=== PATIENT | female | born 1990 | race Caucasian/White ===

== ENCOUNTER 2017-02-14 21:03 | Inpatient (IN) ==
[2017-02-15] MEDS ORDERED: Hydrocortisone Sodium Succ 100 MG/2 ML VIAL IVP ONE (00:25)
[2017-02-15] MEDS ORDERED: Magnesium Sulfate 1 GM in D5% in Water 100 ML IVPB ONE (00:27)
[2017-02-15] MEDS ORDERED: Hydrocortisone Sodium Succ 100 MG/2 ML VIAL ONE (00:49)
[2017-02-15] MEDS: *HR* Enoxaparin 40 MG/0.4 ML SYRINGE SQ SCH ×2 (01:11→06:51)
--- NOTE | 2017-02-15 01:22 | Internal Med History&Physical ---
Date of Encounter: 02/15/17 Time of Encounter: 01:14 Assessment and Plan (1) Respiratory failure Current visit: Yes Status: Acute Respiratory failure in the setting hypoxemia. No radiological evidence of pneumonia, however patient has received a dose of vanco and zosyn, will continue with both. we will also continue with oxygen therapy and nebulizer treatments. Poor prognosis. Patients family still wants us to transfer the patient back to [place] for further care. Palliative care consult placed. Qualifiers: Chronicity: acute Respiratory failure complication: hypoxia Qualified Code(s): J96.01 - Acute respiratory failure with hypoxia (2) Cerebral palsy Current visit: Yes Status: Acute Qualifiers: Cerebral palsy type: unspecified type Qualified Code(s): G80.9 - Cerebral palsy, unspecified Internal Medicine - H&P: HPI Chief complaint: SOB Admitted From: Hospital to Hospital Transfer ([place]) Plans for Post Hospital Care: Transfer Other History of present illness: Ms. Hutchison is a 27 year old female with PMH of cerebral palsy. bedbounded, has a peg tube. Patient presented to [facility] from [facility] Her mother states that patient has been feeling short f breath since the last 4 days which is getting worse, she has been febrile and with wheezing. Patient mother called patients pcp and patient was seen on saturday and prescribed azythromycin. Patient did get any better and was taken to [place] ED. At [place] she had workup done and was found tachycardic and hypotensive, she was given Zosyn and vancomycin, along with solumedrol and nebulizer therapy. She was transferred to [place] Upon arrival to the hospital i had a conversation with patient's other, she specifically requested the patient to become a DNR comfort care. We will continue with supportive care. The patient's mother requested the patient to be transferred back she states that they feel comforta the transfer, however Dr. Ron not feel comfortable accepting the patient, e said we could attempt again when the morning team comes back. I explained the situation the patient's family, they expressed understanding. Past Med Surg Social Fam HX - Past Medical History Source: obtained from family Medical history: seizures Psychiatric history: other - Social History Smoking Status: Never smoker Smokeless Tobacco Status: No Alcohol use: none Drug use: none - Family History Mother Adopted: [place]: Kiarra Donaldson Age: 46 Family Member Ethnicity: Non- Living Status: Still Living Hx Family Cardiac Disorders: No Hx Family Respiratory Disorders: No Hx Family Cancer: Yes (mother had lung cancer) Hx Family GI Disorders: Yes (Crohn's Disease) Hx Family Genitourinary Disorders: No Hx Family Endocrine Disorder: Yes (Grandmother was Diabetic) Hx Family Musculoskeletal Disorders: No Hx Family Neuromuscular Disorders: No Hx Family Neurologic Disorders: No Hx Family HEENT Disorders: No Hx Family Autoimmune Disorders: No Hx Family Reproductive Disorders: No Hx Family Psychosocial Disorders: No Hx Family Medical Disorders: No Internal Medicine - H&P: Meds Klonopin 0.5 mg GTUBE DAILY 05/05/16 [History] Lamictal 150 mg GTUBE DAILY 05/05/16 [History] Mysoline 75 mg GTUBE TID 05/05/16 [History] Poly--Chayo 1 ml GTUBE DAILY 05/05/16 [History] Robinul 1 mg GTUBE TID 05/05/16 [History] Allergies levothyroxine sodium Allergy (Verified 05/05/16 11:19) Hives ROS unobtainable: due to mental status All Systems PM: A 10-system review of systems was performed and is negative for pertinent findings except as documented above in the HPI. - Constitutional Vitals: Temp Pulse Resp BP Pulse Ox 98.2 F 127 41 107/78 93 L 02/14/17 23:28 02/15/17 00:55 02/15/17 00:55 02/15/17 00:55 02/15/17 00:55 General appearance: Present: A&O X 1, severe distress - Head Head exam: Present: atraumatic, normocephalic - Eye Eye exam: Present: conjuntiva pink, sclera anicteric - Neck Neck exam general surgery: Present: supple, trachea midline. Absent: lymphadenopathy - Respiratory Respiratory exam: Present: decreased breath sounds, respiratory distress, wheezes. Absent: accessory muscle use, rales, rhonchi - Cardiovascular Cardiovascular exam: Present: RRR, +S1, +S2, tachycardia. Absent: diastolic murmur, gallop, rubs, systolic murmur - GI/Abdominal GI/Abdominal exam: Present: normal bowel sounds, soft, no peritoneal signs. Absent: distended, tenderness Additional comments: peg tube placed - Extremities Exam Extremities exam: Present: warm, radial pulses palpable and symetrical. Absent : calf tenderness, cyanotic, pedal edema - Neurological Exam Neurological exam: Absent: pronater drift, facial droop, speech deficit Additional comments: cuadriparesis - Skin Skin exam: Present: dry, intact
[2017-02-15] MEDS ORDERED: *HR* Morphine 2 MG/ML SYRINGE IVP PRN (01:23)
[2017-02-15] MEDS ORDERED: Naloxone 0.4 MG/ML INJ IVP PRN (01:23)
[2017-02-15] MEDS ORDERED: Vancomycin 500 MG in D5% in Water 250 ML IVPB SCH (02:00)
[2017-02-15] MEDS: D5% in 0.45% NACL 1,000 ML IVC SCH (02:26)
[2017-02-15] MEDS ORDERED: Levalbuterol Neb 1.25 MG/3 ML IH SCH (04:00)
[2017-02-15] MEDS: Ipratropium/Albuterol Neb 3 ML IH SCH ×2 (04:44→05:26)
[2017-02-15 05:43] LABS: BUN/Creatinine Ratio 8 (6-26); eGFR For African Americans > 60 (> 60); eGFR For Non-African Americans > 60 (> 60)
[2017-02-15 05:50] LABS: Blood Urea Nitrogen 3 mg/dL (7-20)
[2017-02-15] MEDS ORDERED: *HR* Enoxaparin 40 MG/0.4 ML SYRINGE SQ SCH (06:00)
[2017-02-15] MEDS ORDERED: Piperacillin/Tazobactam 3.375 GM in D5% in Water (Mini-Bag+) 100 ML IVPB SCH (06:00)
[2017-02-15] MEDS: Famotidine 20 MG/2 ML VIAL IVP SCH ×2 (06:51→18:28)
[2017-02-15] MEDS: Glycopyrrolate 1 MG TABLET GTUBE SCH ×3 (06:52→20:28)
[2017-02-15] MEDS: Primidone 50 MG TABLET GTUBE SCH ×3 (06:52→20:28)
[2017-02-15] MEDS: lamoTRIgine 100 MG TABLET GTUBE SCH ×3 (06:52→20:28)
[2017-02-15] MEDS: clonazePAM 0.5 MG TABLET GTUBE SCH (06:52)
[2017-02-15] MEDS ORDERED: Levalbuterol Neb 1.25 MG/3 ML IH PRN (08:59)
[2017-02-15] MEDS ORDERED: *HR* LORazepam 2 MG/ML VIAL IVP PRN (09:10)
[2017-02-15] MEDS ORDERED: Aminoglycoside Consult 1 EACH MC ONE (09:18)
[2017-02-15] MEDS: Vancomycin 750 MG in D5% in Water 250 ML IVPB SCH ×2 (10:16→21:42)
--- NOTE | 2017-02-15 10:49 | Palliative - Consult Note ---
Date of Encounter: 02/15/17 Time of Encounter: 08:30 - Assessment and Plan (1) Dyspnea Current Visit: Yes Status: Acute Assessment and plan: Supportive O2, nebulizers, IV steroids and ATB per hospitalist, check respiratory infection panel, flu swab negative at [place]. D/C morphine. Robitussin every 6 hours as needed. Percussion provided by mother. Qualifiers: Dyspnea type: shortness of breath Qualified Code(s): R06.02 - Shortness of breath (2) Airway clearance impairment Current Visit: Yes Status: Acute Assessment and plan: Robinul at home dose. (3) Generalized pain Current Visit: Yes Status: Acute Assessment and plan: Mother requested home dose of acetaminophen for mild pain. (4) Respiratory failure Current Visit: Yes Status: Acute Assessment and plan: Management per hospitalist Qualifiers: Chronicity: acute Respiratory failure complication: hypoxia Qualified Code(s): J96.01 - Acute respiratory failure with hypoxia (5) Cerebral palsy Current Visit: Yes Status: Acute Qualifiers: Cerebral palsy type: unspecified type Qualified Code(s): G80.9 - Cerebral palsy, unspecified (6) Goals of care, counseling/discussion Current Visit: Yes Status: Acute Assessment and plan: Discussed goals of care with the patient's mother. She would like to pursue aggressive treatment of her daughter's illness. Reviewed code status options including full code, DNR CC-Arrest, and DNR-CC. Reviewed intubation and mechanical ventilation. Code status changed to DNR-CCA/DNI as a result of conversation. Mother in agreement with treatment plan. Discussed case with hospitalist. Medications adjusted. administrative services coordinator following for discharge needs. Palliative-CN HPI - Data of Consult Patient: new to practice Consult date: 02/15/17 Requesting Physician: Sukhi Rao Primary Care Provider: Hayley Salinas - Consult Narrative Palliative Care/Comfort Measures: Palliative care Reason for consult: Goals of care History of present illness: Ms. Hutchison is a 27 year old female with history of cerebral palsy presenting to [facility] as a transfer from [facility]. Ms. Hinton lives in the home with her family. Her mother reports exposure to household illness has affected each family member. Symptoms began on 02/10/2017. Ms. Hutchison sought care at her primary care provider. She was started on nebulizer treatments and antibiotics on 02/05/2017. Despite medical intervention, Ms. Hutchison's respiratory status began to deteriorate which led to evaluation in the emergency department on , 02/14/2017. Patient was admitted to the intensive care unit for Hospital. Lactic acid level was 1.2. Nasal swab her insulin that was negative for influenza A and B. She was started on antibiotic therapy and steroid therapy per sepsis protocol. Her respiratory status was greatly impaired, which triggered the transfer to the ICU at [place]. After the transfer to [place], the patient's parents elected to avoid intubation and mechanical ventilation. CODE STATUS was adjusted, and the patient was transferred to the intensive care unit. The palliative care team was consulted to assist with further goals of care and symptom management. At baseline, the patient is wheelchair-bound. She is nonverbal, but is able to open her eyes. Her mother is her primary caregiver. She is nothing by mouth, and fed via feeding tube with Jevity, 4 cans per day. CC: Sukhi Rao Past Med Surg Social Fam HX - Past Medical History Medical history: seizures Psychiatric history: other - Past Surgical History Surgical History: other (Jimy fundoplication at age 2 months, G-tube placement ) - Social History Smoking Status: Never smoker Smokeless Tobacco Status: No Alcohol use: none Drug use: none Current living situation: Home, With Family Activity Level: Other Recent Out of Country Travel Within the Last 8 Weeks: No Exposure or Possible Exposure to Illness During Travel: No - Family History Mother Adopted: [place]: Kiarra Donaldson Age: 46 Family Member Ethnicity: Non- Living Status: Still Living Hx Family Cardiac Disorders: No Hx Family Respiratory Disorders: No Hx Family Cancer: Yes (mother had lung cancer) Hx Family GI Disorders: Yes (Crohn's Disease) Hx Family Genitourinary Disorders: No Hx Family Endocrine Disorder: Yes (Grandmother was Diabetic) Hx Family Musculoskeletal Disorders: No Hx Family Neuromuscular Disorders: No Hx Family Neurologic Disorders: No Hx Family HEENT Disorders: No Hx Family Autoimmune Disorders: No Hx Family Reproductive Disorders: No Hx Family Psychosocial Disorders: No Hx Family Medical Disorders: No Medications and Allergies ClonazePAM [Klonopin] 0.75 mg GTUBE TID 05/05/16 [History] Glycopyrrolate [Robinul] 1 mg GTUBE TID 05/05/16 [History] Lamotrigine [Lamictal] 150 mg GTUBE TID 05/05/16 [History] Pediatric Vitamin w/ iron [Poly-Vi-Chayo with Iron Drops] 1 ml GTUBE DAILY [History] Primidone [Mysoline] 75 mg GTUBE TID 05/05/16 [History] Azithromycin [Zithromax Susp] 6 mg GTUBE DAILY 02/15/17 [History] Allergies levofloxacin [From Levaquin] Allergy (Verified 02/15/17 08:17) See Comments MOTER STATES SHE BECAME RED IN THE FACE AND STARTED SCREAMING IN PAIN ROS unobtainable: due to mental status Palliative Care-Exam - Constitutional Vitals: Temp Pulse Resp BP Pulse Ox 97.9 F 114 24 99/69 98 02/15/17 10:10 02/15/17 10:10 02/15/17 10:10 02/15/17 10:10 02/15/17 10:10 Exam: 27 year old female, contracted, non-verbal - Head Head Exam: Present: atraumatic - Eye Eye exam: Present: EOMI Pupils: Present: PERRL - ENT ENT exam: Present: mucous membranes dry - Neck Additional comments: decreased ROM at baseline - Respiratory Respiratory exam: Present: accessory muscle use, respiratory distress, rhonchi, wheezes, tachypnea Additional comments: moist non-productive cough - Expanded Respiratory Exam Location: rhonchi: Left, Right, Upper, Lower, wheezes: Left, Right, Upper, Lower - Cardiovascular Cardiovascular exam: Present: RRR, +S1, +S2, tachycardia - GI/Abdominal Exam GI/Abdominal exam: Present: normal bowel sounds, soft. Absent: guarding, tenderness - Extremities Exam Additional comments: extremities contracted - Expanded Upper Extremities Exam General: Absent: normal inspection (contracted) - Neurological Exam Additional comments: Opens eyes, unable to follow commands, non-verbal at baseline - Psychiatric Psychiatric exam: Present: agitated - Skin Skin exam: Present: dry, pallor, warm Internal Medicine - CN: Reslt - Labs CBC & Chem 7: 02/15/17 04:57 Labs: BMP 02/15/17 04:57 BUN 3 L Creatinine 0.40 L - Impressions Impressions Chest X-Ray 02/15/17 09:11 IMPRESSION: Suboptimal evaluation due to severe scoliosis and patient positioning. No evidence of acute cardiopulmonary process. D/ / 02/15/2017 09:39:10 Garry Kennedy MD / Fiona Gallego Interpreting Provider: Garry Kennedy MD Consult Discharge Plan - Plan Referrals: Hayley Salinas MD [Primary Care Provider] - Palliative Quality Palliative Quality: Screen for Code Status: Yes, Screen for Goals of Care: Yes, Screen for Pain: Yes, If Pain Regimen Started, Initiate Bowel Regimen: Yes, Screen for Nausea/Vomitting: Yes Code Status: 02/15/17 01:23 Resuscitation Status: Active [RES] Routine Comment: Resuscitation Status: DNR-Comfort Care Resuscitation Status: Active [RES] Routine Comment: Resuscitation Status: [id number]
[2017-02-15 11:52] LABS: Adenovirus Not Detected (Not Detect); Bordetella Pertussis Not Detected (Not Detect); Chlamydophila pneumoniae Not Detected (Not Detect); Coronavirus 229E Not Detected (Not Detect); Coronavirus HKU1 Not Detected (Not Detect); Coronavirus NL63 Not Detected (Not Detect); Coronavirus OC43 Not Detected (Not Detect); Human Metapneumovirus ***DETECTED*** (Not Detect); Human Rhinovirus/Enterovirus Not Detected (Not Detect); Influenza A Subtype 2009 H1 Not Detected (Not Detect); Influenza A Untypeable Not Detected (Not Detect); Influenza B Not Detected (Not Detect); Mycoplasma pneumoniae Not Detected (Not Detect); Parainfluenza Virus 1 Not Detected (Not Detect); Parainfluenza Virus 2 Not Detected (Not Detect); Parainfluenza Virus 3 Not Detected (Not Detect); Parainfluenza Virus 4 Not Detected (Not Detect); Respiratory Syncytial Virus Not Detected (Not Detect)
[2017-02-15] MEDS: Levalbuterol Neb 1.25 MG/3 ML IH SCH ×4 (12:07→23:29)
[2017-02-15] MEDS: Ipratropium Neb 0.5 MG NEBULIZER IH SCH ×4 (12:07→23:29)
[2017-02-15 12:12] LABS: ABG Base Excess 5.2 mEq/L (-2.0 to 3.0); ABG Oxygen Saturation 97 % (95-98); ABG PCO2 50 mmHg (35-45); ABG PO2 86 mmHg (85-104); ABG TCO2 32.5 mEq/L (20-26)
[2017-02-15 12:13] LABS: Blood Gas FiO2 30 %
[2017-02-15] MEDS: Piperacillin/Tazobactam 3.375 GM in D5% in Water (Mini-Bag+) 100 ML IVPB SCH (15:49)
[2017-02-15] MEDS: GuaiFENesin Liq 200 MG/10 ML UDC GTUBE PRN (16:54)
[2017-02-15] MEDS: Pediatric Vitamin w/ iron 1 DROPPERFUL/ML EACH PO SCH (20:28)
[2017-02-16] MEDS: Piperacillin/Tazobactam 3.375 GM in D5% in Water (Mini-Bag+) 100 ML IVPB SCH (05:01)
[2017-02-16] MEDS: Ipratropium Neb 0.5 MG NEBULIZER IH SCH ×6 (05:13→23:26)
[2017-02-16] MEDS: Levalbuterol Neb 1.25 MG/3 ML IH SCH ×6 (05:14→23:26)
[2017-02-16] MEDS: *HR* Enoxaparin 40 MG/0.4 ML SYRINGE SQ SCH (06:39)
[2017-02-16] MEDS: Primidone 50 MG TABLET GTUBE SCH ×3 (06:39→21:16)
[2017-02-16] MEDS: clonazePAM 0.5 MG TABLET GTUBE SCH (06:40)
[2017-02-16] MEDS: Glycopyrrolate 1 MG TABLET GTUBE SCH ×3 (06:40→23:41)
[2017-02-16] MEDS: lamoTRIgine 100 MG TABLET GTUBE SCH ×3 (06:40→21:16)
[2017-02-16] MEDS: Famotidine 20 MG/2 ML VIAL IVP SCH ×2 (06:49→17:34)
--- NOTE | 2017-02-16 07:26 | Palliative Progress Note ---
Date of Encounter: 02/16/17 Time of Encounter: 07:00 - Assessment and plan (1) Respiratory failure Current Visit: Yes Status: Acute Assessment and plan: Improving per family. Qualifiers: Chronicity: acute Respiratory failure complication: hypoxia Qualified Code(s): J96.01 - Acute respiratory failure with hypoxia (2) Dyspnea Current Visit: Yes Status: Acute Assessment and plan: Improving per family continue current medications. Qualifiers: Dyspnea type: shortness of breath Qualified Code(s): R06.02 - Shortness of breath (3) Airway clearance impairment Current Visit: Yes Status: Acute Assessment and plan: On home dose of Robinul. (4) Generalized pain Current Visit: Yes Status: Acute Assessment and plan: Tylenol appears to be effective. (5) Goals of care, counseling/discussion Current Visit: Yes Status: Acute Assessment and plan: Family desires aggressive treatment, however they do not wish to have her intubated or resuscitated in the event of cardiac arrest. The plan will be for the patient return home with family. - Time Spent With Patient Total time spent is greater than 50% in coordination of care (as documented) at patient's floor/unit and/or counseling patient: - Subjective Interval history: Per patient's mom, patient had a good night, however they did lose the IV last night. Seems to be fighting through it. - Constitutional Vitals: Abnormal lab results ABG pCO2 50 mmHg (35-45) H 02/15/17 12:08 ABG HCO3 31.0 mEQ/L (21-27) H 02/15/17 12:08 ABG Total CO2 32.5 mEq/L (20-26) H 02/15/17 12:08 ABG Base Excess 5.2 mEq/L (-2.0 to 3.0) H 02/15/17 12:08 BUN 3 mg/dL (7-20) L 02/15/17 04:57 Creatinine 0.40 mg/dL (0.57-1.11) L 02/15/17 04:57 POC Glucose 123 (58-89) H 02/14/17 23:03 Human Metapneumovirus DETECTED (Not Detect) A 02/15/17 10:30 General appearance: Present: no acute distress - Head Head exam: Present: atraumatic - Respiratory Respiratory exam: Present: decreased breath sounds, rhonchi - Cardiovascular Cardiovascular exam: Present: RRR, tachycardia - GI/Abdominal GI/Abdominal exam: Present: normal bowel sounds, soft. Absent: tenderness - Extremities Exam Extremities exam: Absent: tenderness - Neurological Exam Neurological exam: Present: alert (sleeping) - Psychiatric Psychiatric exam: Absent: agitated, anxious - Skin Skin exam: Present: dry, warm Palliative Quality Palliative Quality: Screen for Code Status: Yes, Screen for Goals of Care: Yes, Screen for Pain: Yes, If Pain Regimen Started, Initiate Bowel Regimen: Yes, Screen for Nausea/Vomitting: Yes Code Status: 02/15/17 01:23 Resuscitation Status: Active [RES] Routine Comment: Resuscitation Status: DNR-Comfort Care Resuscitation Status: Active [RES] Routine Comment: Resuscitation Status: [id number] - Labs CBC & Chem 7: 02/15/17 04:57 Labs: Laboratory Results - last 24 hr 02/15/17 02/15/17 10:30 12:08 ABG pH 7.40 ABG pCO2 50 H ABG pO2 86 ABG HCO3 31.0 H ABG Total CO2 32.5 H ABG O2 Saturation 97 ABG Base Excess 5.2 H Blood Gas Modality NC Inspired O2 30 Chlamy pneumoniae PCR Not Detected Adenovirus (PCR) Not Detected B. pertussis DNA (PCR) Not Detected Coronavirus OC43 (PCR) Not Detected Coronavirus HKU1 (PCR) Not Detected Coronavirus 229E (PCR) Not Detected Coronavirus NL63 (PCR) Not Detected Human Metapneumovirus DETECTED A Influenza A (H1) PCR Not Detected Influ A (H1N1/09) PCR Not Detected Influenza A (H3) PCR Not Detected Influenza A Untype (PCR) Not Detected Influenza Type B (PCR) Not Detected M.pneumoniae DNA (PCR) Not Detected Parainfluenza 1 (PCR) Not Detected Parainfluenza 2 (PCR) Not Detected Parainfluenza 3 (PCR) Not Detected Parainfluenza 4 (PCR) Not Detected RSV (PCR) Not Detected Entero/Rhino (PCR) Not Detected - Impressions Impressions Chest X-Ray 02/15/17 09:11 IMPRESSION: Suboptimal evaluation due to severe scoliosis and patient positioning. No evidence of acute cardiopulmonary process. D/ / 02/15/2017 09:39:10 Garry Kennedy MD / Fiona Gallego Interpreting Provider: Garry Kennedy MD Chest CTA 02/15/17 09:59 IMPRESSION: No evidence of pulmonary embolism or acute pulmonary abnormality. Bilateral pulmonary infiltrates. Recommend follow-up CT scan of the chest to confirm complete resolution D/ / Charlie Lester MD / Charlie Lester MD Interpreting Provider: Charlie Lester MD - ABG Interpretation ABG results: ABG ABG pH 7.40 pH Units (7.32-7.45) 02/15/17 12:08 ABG pCO2 50 mmHg (35-45) H 02/15/17 12:08 ABG pO2 86 mmHg (85-104) 02/15/17 12:08 ABG O2 Saturation 97 % (95-98) 02/15/17 12:08 Consult Discharge Plan - Plan Referrals: Hayley Salinas MD [Primary Care Provider] -
--- NOTE | 2017-02-16 10:16 | Internal Med Progress Note ---
Date of Encounter: 02/16/17 Time of Encounter: 10:14 - Assessment and plan (1) Human metapneumovirus (hMPV) pneumonia Current Visit: Yes Status: Acute Assessment and plan: Hypoxic hypercapnic respiratory failure secondary to sepsis from combination of community-acquired pneumonia with human intermittent minimal virus pneumonia The patient is in respiratory distress and wheezing loudly At the moment there is no IV access Start Rocephin intramuscular Solu-Medrol intramuscular Continue oxygen therapy The patient received a seasonal mycin for 3 days prior to being admitted, was started on Zosyn and vancomycin upon admission Aspiration precautions She is a DNR CC arrest DNI High risk due to severe respiratory failure Her mother refused labs in the morning, she was explained on the importance of them Powerglide will be attempted (2) CAP (community acquired pneumonia) Current Visit: Yes Status: Acute (3) Respiratory failure Current Visit: Yes Status: Acute Qualifiers: Chronicity: acute Respiratory failure complication: hypoxia Qualified Code(s): J96.01 - Acute respiratory failure with hypoxia (4) Cerebral palsy Current Visit: Yes Status: Acute Qualifiers: Cerebral palsy type: unspecified type Qualified Code(s): G80.9 - Cerebral palsy, unspecified - Subjective Interval history: obtunded, in respiratory distress, unable to complete ROS - Constitutional Vitals: Temp Pulse Resp BP Pulse Ox 97.8 F 118 24 116/71 96 02/16/17 07:17 02/16/17 07:17 02/16/17 07:47 02/16/17 07:17 02/16/17 09:00 General appearance: Present: A&O X 0, severe distress - Head Head exam: Present: atraumatic, normocephalic - Eye Eye exam: Present: PERRL, conjuntiva pink, sclera anicteric Pupils: Present: PERRL - Neck Neck exam general surgery: Present: supple, trachea midline. Absent: lymphadenopathy - Respiratory Respiratory exam: Present: CTAB, rales, wheezes (Diffuse crackles and wheezing) . Absent: accessory muscle use, rhonchi - Cardiovascular Cardiovascular exam: Present: RRR, +S1, +S2, tachycardia. Absent: diastolic murmur, gallop, rubs, systolic murmur - GI/Abdominal GI/Abdominal exam: Present: distended (PEG tube is in place), normal bowel sounds, soft, no peritoneal signs. Absent: tenderness - Extremities Exam Extremities exam: Present: warm, radial pulses palpable and symetrical. Absent : calf tenderness, cyanotic, pedal edema - Neurological Exam Neurological exam: Present: no focal deficits. Absent: CN II-XII intact, oriented X3, pronater drift, facial droop, speech deficit Additional comments: Respiratory accident sorry muscles used, multiple deformities - Skin Skin exam: Present: dry, intact Internal Medicine: Result - Labs CBC & Chem 7: 02/15/17 04:57 - ABG Interpretation ABG results: ABG ABG pH 7.40 pH Units (7.32-7.45) 02/15/17 12:08 ABG pCO2 50 mmHg (35-45) H 02/15/17 12:08 ABG pO2 86 mmHg (85-104) 02/15/17 12:08 ABG O2 Saturation 97 % (95-98) 02/15/17 12:08 - Impressions Impressions Chest X-Ray 02/15/17 09:11 IMPRESSION: Suboptimal evaluation due to severe scoliosis and patient positioning. No evidence of acute cardiopulmonary process. D/ / 02/15/2017 09:39:10 Garry Kennedy MD / Fiona Gallego Interpreting Provider: Garry Kennedy MD Chest CTA 02/15/17 09:59 IMPRESSION: No evidence of pulmonary embolism or acute pulmonary abnormality. Bilateral pulmonary infiltrates. Recommend follow-up CT scan of the chest to confirm complete resolution D/ / Charlie Lester MD / Charlie Lester MD Interpreting Provider: Charlie Lester MD Consult Discharge Plan - Plan Referrals: Hayley Salinas MD [Primary Care Provider] -
[2017-02-16] MEDS: GuaiFENesin Liq 200 MG/10 ML UDC GTUBE PRN (10:29)
[2017-02-16] MEDS: MethylPREDNISolone 40 MG/ML VIAL IM SCH ×2 (10:29→15:48)
[2017-02-16] MEDS ORDERED: CefTRIAXone 1,000 MG VIAL IM SCH (11:00)
[2017-02-16] MEDS ORDERED: Furosemide 20 MG/2 ML VIAL IVP ONE (12:56)
[2017-02-16 13:12] LABS: Hematocrit 39.5 % (35.3-44.9); Hemoglobin 12.5 g/dL (11.5-15.4); Mean Corpuscular HGB Conc 31.6 g/dL (31.6-35.5); Mean Corpuscular Hemoglobin 31.1 pg (28.0-33.3); Mean Corpuscular Volume 98.3 fL (83.0-100.0); Mean Platelet Volume 12.3 fL (9.4-12.4); Platelet Count 154 K/mcL (140-400); Red Blood Count 4.02 M/mcL (3.82-4.97); Red Cell Distribution Width 13.7 % (11.5-14.5)
[2017-02-16 13:20] LABS: BUN/Creatinine Ratio 20 (6-26); Blood Urea Nitrogen 7 mg/dL (7-20); Calcium 7.7 mg/dL (8.6-10.8); Carbon Dioxide 28 mEq/L (19-29); Chloride 106 mEq/L (98-109); Glucose 93 mg/dL (70-99); Osmolality,Calculated 292 (280-300); Potassium 3.8 mEq/L (3.5-4.5); Sodium 142 mEq/L (136-145); eGFR For African Americans > 60 (> 60); eGFR For Non-African Americans > 60 (> 60)
[2017-02-16] MEDS: D5% in 0.45% NACL 1,000 ML IVC SCH (17:18)
[2017-02-16] MEDS ORDERED: MethylPREDNISolone 40 MG/ML VIAL IVP SCH (21:00)
[2017-02-16] MEDS: Pediatric Vitamin w/ iron 1 DROPPERFUL/ML EACH PO SCH ×2 (21:21→23:42)
[2017-02-17 03:14] LABS: Hematocrit 38.6 % (35.3-44.9); Mean Corpuscular HGB Conc 33.7 g/dL (31.6-35.5); Mean Corpuscular Hemoglobin 32.2 pg (28.0-33.3); Mean Corpuscular Volume 95.5 fL (83.0-100.0); Mean Platelet Volume 12.5 fL (9.4-12.4); Platelet Count 160 K/mcL (140-400); Red Blood Count 4.04 M/mcL (3.82-4.97); Red Cell Distribution Width 13.6 % (11.5-14.5)
[2017-02-17 03:29] LABS: BUN/Creatinine Ratio 26 (6-26); Blood Urea Nitrogen 10 mg/dL (7-20); Calcium 8.2 mg/dL (8.6-10.8); Carbon Dioxide 29 mEq/L (19-29); Chloride 103 mEq/L (98-109); Glucose 129 mg/dL (70-99); Osmolality,Calculated 291 (280-300); Potassium 3.9 mEq/L (3.5-4.5); Sodium 140 mEq/L (136-145); eGFR For African Americans > 60 (> 60); eGFR For Non-African Americans > 60 (> 60)
[2017-02-17] MEDS: Ipratropium Neb 0.5 MG NEBULIZER IH SCH ×5 (04:37→20:20)
[2017-02-17] MEDS: Levalbuterol Neb 1.25 MG/3 ML IH SCH ×5 (04:37→20:20)
[2017-02-17] MEDS: Famotidine 20 MG/2 ML VIAL IVP SCH ×2 (06:48→17:40)
[2017-02-17] MEDS: lamoTRIgine 100 MG TABLET GTUBE SCH ×3 (06:48→20:53)
[2017-02-17] MEDS: *HR* Enoxaparin 40 MG/0.4 ML SYRINGE SQ SCH (06:48)
[2017-02-17] MEDS: clonazePAM 0.5 MG TABLET GTUBE SCH (06:48)
[2017-02-17] MEDS: Glycopyrrolate 1 MG TABLET GTUBE SCH ×3 (06:49→20:52)
[2017-02-17] MEDS: Primidone 50 MG TABLET GTUBE SCH ×3 (06:52→20:52)
--- NOTE | 2017-02-17 08:01 | Palliative Progress Note ---
Date of Encounter: 02/17/17 Time of Encounter: 07:30 - Assessment and plan (1) Respiratory failure Current Visit: Yes Status: Acute Assessment and plan: Improving per family. She Current medications per hospitalist team Qualifiers: Chronicity: acute Respiratory failure complication: hypoxia Qualified Code(s): J96.01 - Acute respiratory failure with hypoxia (2) Dyspnea Current Visit: Yes Status: Acute Assessment and plan: Improving per family continue current medications. No changes today continue per hospitalist team Qualifiers: Dyspnea type: shortness of breath Qualified Code(s): R06.02 - Shortness of breath (3) Airway clearance impairment Current Visit: Yes Status: Acute Assessment and plan: On home dose of Robinul. (4) Generalized pain Current Visit: Yes Status: Acute Assessment and plan: Tylenol appears to be effective. Per family this continues to work well. (5) Goals of care, counseling/discussion Current Visit: Yes Status: Acute Assessment and plan: Family desires aggressive treatment, however they do not wish to have her intubated or resuscitated in the event of cardiac arrest. The plan will be for the patient return home with family. No changes today. - Time Spent With Patient Total time spent is greater than 50% in coordination of care (as documented) at patient's floor/unit and/or counseling patient: - Subjective Interval history: Per patient's mom, patient had a good night, IV is back and but the patient is not receiving anything via it at this time. Patient did respond very well to Lasix yesterday. But is having very little urine output at this time. Mom does say there is some redness around the G-tube otherwise the tube feedings are going well. - Constitutional Vitals: Abnormal lab results WBC 2.0 K/mcL (4.3-11.1) L 02/17/17 02:55 MPV 12.5 fL (9.4-12.4) H 02/17/17 02:55 ABG pCO2 50 mmHg (35-45) H 02/15/17 12:08 ABG HCO3 31.0 mEQ/L (21-27) H 02/15/17 12:08 ABG Total CO2 32.5 mEq/L (20-26) H 02/15/17 12:08 ABG Base Excess 5.2 mEq/L (-2.0 to 3.0) H 02/15/17 12:08 Creatinine 0.39 mg/dL (0.57-1.11) L 02/17/17 02:55 Glucose 129 mg/dL (70-99) H 02/17/17 02:55 POC Glucose 123 (58-89) H 02/14/17 23:03 Calcium 8.2 mg/dL (8.6-10.8) L 02/17/17 02:55 Vancomycin Trough 1.3 mcg/mL (10-20) L 02/16/17 12:36 Human Metapneumovirus DETECTED (Not Detect) A 02/15/17 10:30 General appearance: Present: no acute distress - Head Head exam: Present: atraumatic - Respiratory Respiratory exam: Present: decreased breath sounds, wheezes - Cardiovascular Cardiovascular exam: Present: RRR, tachycardia - GI/Abdominal GI/Abdominal exam: Present: normal bowel sounds, soft. Absent: tenderness ( Small amount of redness is noted around the G-tube from moisture.) - Extremities Exam Extremities exam: Absent: tenderness - Neurological Exam Neurological exam: Present: altered (Has CP) - Psychiatric Psychiatric exam: Absent: agitated, anxious - Skin Skin exam: Present: dry, rash (All amount of redness is noted around the G-tube presumably from moisture.), warm Palliative Quality Palliative Quality: Screen for Code Status: Yes, Screen for Goals of Care: Yes, Screen for Pain: Yes, If Pain Regimen Started, Initiate Bowel Regimen: Yes, Screen for Nausea/Vomitting: Yes Code Status: 02/15/17 01:23 Resuscitation Status: Active [RES] Routine Comment: Resuscitation Status: DNR-Comfort Care Resuscitation Status: Active [RES] Routine Comment: Resuscitation Status: [id number] - Labs CBC & Chem 7: 02/17/17 02:55 02/17/17 02:55 Labs: Laboratory Results - last 24 hr 02/16/17 02/16/17 02/16/17 12:36 12:36 12:36 WBC 3.6 L RBC 4.02 Hgb 12.5 Hct 39.5 MCV 98.3 MCH 31.1 MCHC 31.6 RDW 13.7 Plt Count 154 MPV 12.3 Sodium 142 Potassium 3.8 Chloride 106 Carbon Dioxide 28 BUN 7 Creatinine 0.35 L Est GFR ( Amer) > 60 Est GFR (Non-Af Amer) > 60 BUN/Creatinine Ratio 20 Glucose 93 Calculated Osmolality 292 Calcium 7.7 L Vancomycin Trough 1.3 L 02/17/17 02/17/17 02:55 02:55 WBC 2.0 L RBC 4.04 Hgb 13.0 Hct 38.6 MCV 95.5 MCH 32.2 MCHC 33.7 RDW 13.6 Plt Count 160 MPV 12.5 H Sodium 140 Potassium 3.9 Chloride 103 Carbon Dioxide 29 BUN 10 Creatinine 0.39 L Est GFR ( Amer) > 60 Est GFR (Non-Af Amer) > 60 BUN/Creatinine Ratio 26 Glucose 129 H Calculated Osmolality 291 Calcium 8.2 L Vancomycin Trough - ABG Interpretation ABG results: ABG ABG pH 7.40 pH Units (7.32-7.45) 02/15/17 12:08 ABG pCO2 50 mmHg (35-45) H 02/15/17 12:08 ABG pO2 86 mmHg (85-104) 02/15/17 12:08 ABG O2 Saturation 97 % (95-98) 02/15/17 12:08 Consult Discharge Plan - Plan Referrals: Hayley Salinas MD [Primary Care Provider] -
--- NOTE | 2017-02-17 08:58 | Internal Med Progress Note ---
Date of Encounter: 02/17/17 Time of Encounter: 08:58 - Assessment and plan (1) Human metapneumovirus (hMPV) pneumonia Current Visit: Yes Status: Acute Assessment and plan: Hypoxic hypercapnic respiratory failure secondary to acute reactive airway disease due to sepsis from combination of community-acquired pneumonia with human metapneumovirus pneumonia continue Rocephin day 2 Solu-Medrol Continue oxygen therapy The patient received azithromycin for 3 days prior to being admitted, was started on Zosyn and vancomycin upon admission Aspiration precautions She is a DNR CC arrest DNI Was very congested / volumeoverloaded, lasix was started High risk due to severe respiratory failure (2) CAP (community acquired pneumonia) Current Visit: Yes Status: Acute (3) Respiratory failure Current Visit: Yes Status: Acute Qualifiers: Chronicity: acute Respiratory failure complication: hypoxia Qualified Code(s): J96.01 - Acute respiratory failure with hypoxia (4) Cerebral palsy Current Visit: Yes Status: Acute Assessment and plan: has daily seizures continue clonazepam and primidone Qualifiers: Cerebral palsy type: unspecified type Qualified Code(s): G80.9 - Cerebral palsy, unspecified - Time Spent With Patient Greater than 35 minutes - Subjective Interval history: Not able to answer questions, not in respiratory distress, unable to complete ROS - Constitutional Vitals: Temp Pulse Resp BP Pulse Ox 98.5 F 118 16 128/69 96 02/17/17 07:30 02/17/17 04:59 02/17/17 07:30 02/17/17 07:30 02/17/17 07:30 General appearance: Present: A&O X 0, severe distress - Head Head exam: Present: atraumatic, normocephalic - Eye Eye exam: Present: PERRL, conjuntiva pink, sclera anicteric Pupils: Present: PERRL - Neck Neck exam general surgery: Present: supple, trachea midline. Absent: lymphadenopathy - Respiratory Respiratory exam: Present: CTAB, rales (fine bibasilar crackles, less wheezing) . Absent: accessory muscle use, rhonchi, wheezes - Cardiovascular Cardiovascular exam: Present: RRR, +S1, +S2. Absent: diastolic murmur, gallop, rubs, systolic murmur - GI/Abdominal GI/Abdominal exam: Present: normal bowel sounds, soft, no peritoneal signs. Absent: distended, tenderness - Extremities Exam Extremities exam: Present: warm, radial pulses palpable and symetrical. Absent : calf tenderness, cyanotic, pedal edema - Neurological Exam Neurological exam: Present: CN II-XII intact, no focal deficits. Absent: oriented X3, pronater drift, facial droop, speech deficit - Skin Skin exam: Present: dry, intact Additional comments: multiple deformities Peg tube in place Internal Medicine: Result - Labs CBC & Chem 7: 02/17/17 02:55 02/17/17 02:55 Labs: Short CBC 02/16/17 02/17/17 Range/Units 12:36 02:55 WBC 3.6 L 2.0 L (4.3-11.1) K/mcL Hgb 12.5 13.0 (11.5-15.4) g/dL Hct 39.5 38.6 (35.3-44.9) % Plt Count 154 160 (140-400) K/mcL BMP 02/16/17 02/17/17 12:36 02:55 Sodium 142 140 Potassium 3.8 3.9 Chloride 106 103 Carbon Dioxide 28 29 BUN 7 10 Creatinine 0.35 L 0.39 L Glucose 93 129 H Calcium 7.7 L 8.2 L - ABG Interpretation ABG results: ABG ABG pH 7.40 pH Units (7.32-7.45) 02/15/17 12:08 ABG pCO2 50 mmHg (35-45) H 02/15/17 12:08 ABG pO2 86 mmHg (85-104) 02/15/17 12:08 ABG O2 Saturation 97 % (95-98) 02/15/17 12:08 Consult Discharge Plan - Plan Referrals: Hayley Salinas MD [Primary Care Provider] -
[2017-02-17] MEDS: Furosemide 20 MG/2 ML VIAL IVP SCH (09:47)
[2017-02-17] MEDS: MethylPREDNISolone 40 MG/ML VIAL IVP SCH (09:49)
[2017-02-17] MEDS: D5% in 0.45% NACL 1,000 ML IVC SCH (17:56)
[2017-02-17] MEDS: Pediatric Vitamin w/ iron 1 DROPPERFUL/ML EACH PO SCH (20:52)
[2017-02-18] MEDS: Levalbuterol Neb 1.25 MG/3 ML IH SCH ×7 (00:37→23:38)
[2017-02-18] MEDS: Ipratropium Neb 0.5 MG NEBULIZER IH SCH ×7 (00:37→23:38)
[2017-02-18] MEDS: GuaiFENesin Liq 200 MG/10 ML UDC GTUBE PRN ×3 (03:52→21:05)
[2017-02-18 04:53] LABS: Hematocrit 38.5 % (35.3-44.9); Hemoglobin 12.6 g/dL (11.5-15.4); Mean Corpuscular HGB Conc 32.7 g/dL (31.6-35.5); Mean Corpuscular Hemoglobin 31.7 pg (28.0-33.3); Mean Corpuscular Volume 96.7 fL (83.0-100.0); Mean Platelet Volume 12.2 fL (9.4-12.4); Platelet Count 196 K/mcL (140-400); Red Blood Count 3.98 M/mcL (3.82-4.97); Red Cell Distribution Width 13.7 % (11.5-14.5)
[2017-02-18 05:18] LABS: BUN/Creatinine Ratio 24 (6-26); Blood Urea Nitrogen 10 mg/dL (7-20); Calcium 8.1 mg/dL (8.6-10.8); Carbon Dioxide 29 mEq/L (19-29); Chloride 101 mEq/L (98-109); Glucose 117 mg/dL (70-99); Osmolality,Calculated 290 (280-300); Potassium 3.5 mEq/L (3.5-4.5); Sodium 140 mEq/L (136-145); eGFR For African Americans > 60 (> 60); eGFR For Non-African Americans > 60 (> 60)
[2017-02-18] MEDS: Primidone 50 MG TABLET GTUBE SCH ×3 (06:21→20:58)
[2017-02-18] MEDS: clonazePAM 0.5 MG TABLET GTUBE SCH (06:21)
[2017-02-18] MEDS: Glycopyrrolate 1 MG TABLET GTUBE SCH ×3 (06:22→20:59)
[2017-02-18] MEDS: Famotidine 20 MG/2 ML VIAL IVP SCH ×2 (06:22→16:59)
[2017-02-18] MEDS: lamoTRIgine 100 MG TABLET GTUBE SCH ×3 (06:22→20:59)
[2017-02-18] MEDS: D5% in 0.45% NACL 1,000 ML IVC SCH (08:54)
[2017-02-18] MEDS: *HR* Enoxaparin 40 MG/0.4 ML SYRINGE SQ SCH (08:54)
[2017-02-18] MEDS: Furosemide 20 MG/2 ML VIAL IVP SCH ×2 (09:04→16:59)
[2017-02-18] MEDS: MethylPREDNISolone 40 MG/ML VIAL IVP SCH (09:04)
--- NOTE | 2017-02-18 11:06 | Internal Med Progress Note ---
Date of Encounter: 02/18/17 Time of Encounter: 11:04 - Assessment and plan (1) Human metapneumovirus (hMPV) pneumonia Current Visit: Yes Status: Acute Assessment and plan: Hypoxic hypercapnic respiratory failure secondary to acute reactive airway disease due to sepsis from combination of community-acquired pneumonia with human metapneumovirus pneumonia continue Rocephin day 3 Solu-Medrol Continue oxygen therapy The patient received azithromycin for 3 days prior to being admitted, was started on Zosyn and vancomycin upon admission Aspiration precautions She is a DNR CC arrest DNI Was very congested / volumeoverloaded, l Increase Lasix to 20 mg BID High risk due to severe respiratory failure (2) CAP (community acquired pneumonia) Current Visit: Yes Status: Acute (3) Respiratory failure Current Visit: Yes Status: Acute Qualifiers: Chronicity: acute Respiratory failure complication: hypoxia Qualified Code(s): J96.01 - Acute respiratory failure with hypoxia (4) Cerebral palsy Current Visit: Yes Status: Acute Assessment and plan: has daily seizures continue clonazepam and primidone Qualifiers: Cerebral palsy type: unspecified type Qualified Code(s): G80.9 - Cerebral palsy, unspecified - Time Spent With Patient Greater than 35 minutes - Subjective Interval history: Not able to answer questions, not in respiratory distress, unable to complete ROS - Constitutional Vitals: Temp Pulse Resp BP Pulse Ox 97.7 F 121 24 100/67 96 02/18/17 09:45 02/18/17 09:45 02/18/17 09:45 02/18/17 09:45 02/18/17 09:45 General appearance: Present: A&O X 0, severe distress - Head Head exam: Present: atraumatic, normocephalic - Eye Eye exam: Present: PERRL, conjuntiva pink, sclera anicteric Pupils: Present: PERRL - Neck Neck exam general surgery: Present: supple, trachea midline. Absent: lymphadenopathy - Respiratory Respiratory exam: Present: CTAB, rales (bibasilar crackles). Absent: accessory muscle use, rhonchi, wheezes - Cardiovascular Cardiovascular exam: Present: RRR, +S1, +S2. Absent: diastolic murmur, gallop, rubs, systolic murmur - GI/Abdominal GI/Abdominal exam: Present: normal bowel sounds, soft, no peritoneal signs. Absent: distended, tenderness - Extremities Exam Extremities exam: Present: warm, radial pulses palpable and symetrical. Absent : calf tenderness, cyanotic, pedal edema - Neurological Exam Neurological exam: Present: CN II-XII intact, no focal deficits. Absent: oriented X3, pronater drift, facial droop, speech deficit Additional comments: short extremities with multiple deformities barrel thorax - Skin Skin exam: Present: dry, intact Internal Medicine: Result - Labs CBC & Chem 7: 02/18/17 04:02 02/18/17 04:02 Labs: Short CBC 02/18/17 Range/Units 04:02 WBC 6.5 D (4.3-11.1) K/mcL Hgb 12.6 (11.5-15.4) g/dL Hct 38.5 (35.3-44.9) % Plt Count 196 (140-400) K/mcL BMP 02/18/17 04:02 Sodium 140 Potassium 3.5 Chloride 101 Carbon Dioxide 29 BUN 10 Creatinine 0.42 L Glucose 117 H Calcium 8.1 L - ABG Interpretation ABG results: ABG ABG pH 7.40 pH Units (7.32-7.45) 02/15/17 12:08 ABG pCO2 50 mmHg (35-45) H 02/15/17 12:08 ABG pO2 86 mmHg (85-104) 02/15/17 12:08 ABG O2 Saturation 97 % (95-98) 02/15/17 12:08 Consult Discharge Plan - Plan Referrals: Hayley Salinas MD [Primary Care Provider] -
[2017-02-18] MEDS: Pediatric Vitamin w/ iron 1 DROPPERFUL/ML EACH PO SCH (22:31)
[2017-02-19] MEDS: *HR* Enoxaparin 40 MG/0.4 ML SYRINGE SQ SCH (04:24)
[2017-02-19] MEDS: Levalbuterol Neb 1.25 MG/3 ML IH SCH ×6 (04:38→23:25)
[2017-02-19] MEDS: Ipratropium Neb 0.5 MG NEBULIZER IH SCH ×6 (04:38→23:25)
[2017-02-19] MEDS: GuaiFENesin Liq 200 MG/10 ML UDC GTUBE PRN ×3 (05:08→21:23)
[2017-02-19] MEDS: Primidone 50 MG TABLET GTUBE SCH ×3 (06:35→20:57)
[2017-02-19] MEDS: Glycopyrrolate 1 MG TABLET GTUBE SCH ×3 (06:35→20:57)
[2017-02-19] MEDS: clonazePAM 0.5 MG TABLET GTUBE SCH (06:36)
[2017-02-19] MEDS: lamoTRIgine 100 MG TABLET GTUBE SCH ×3 (06:36→20:57)
[2017-02-19] MEDS: Famotidine 20 MG/2 ML VIAL IVP SCH (06:37)
[2017-02-19 07:28] LABS: Hematocrit 36.8 % (35.3-44.9); Hemoglobin 12.1 g/dL (11.5-15.4); Mean Corpuscular HGB Conc 32.9 g/dL (31.6-35.5); Mean Corpuscular Hemoglobin 31.5 pg (28.0-33.3); Mean Corpuscular Volume 95.8 fL (83.0-100.0); Mean Platelet Volume 11.3 fL (9.4-12.4); Platelet Count 209 K/mcL (140-400); Red Blood Count 3.84 M/mcL (3.82-4.97); Red Cell Distribution Width 13.6 % (11.5-14.5)
[2017-02-19 07:40] LABS: BUN/Creatinine Ratio 32 (6-26); Blood Urea Nitrogen 13 mg/dL (7-20); Calcium 8.2 mg/dL (8.6-10.8); Carbon Dioxide 29 mEq/L (19-29); Chloride 98 mEq/L (98-109); Glucose 114 mg/dL (70-99); Osmolality,Calculated 285 (280-300); Potassium 3.3 mEq/L (3.5-4.5); Sodium 137 mEq/L (136-145); eGFR For African Americans > 60 (> 60); eGFR For Non-African Americans > 60 (> 60)
--- NOTE | 2017-02-19 09:11 | Event Note ---
Date of Encounter: 02/19/17 Time of Encounter: 09:00 Patient appears stable. Patient's mother at bedside states she feels she has improved and "turning the corner". She states she is sleeping well and appears comfortable. Palliative not managing any symptoms at this point, and code status has been established - will sign off. Instructed mother to please contact us at any time if she has concerns, questions, or desires to re-discuss goals of care. dyehouse worker has been communicating with [facility] to try and increase care hours at home.
[2017-02-19] MEDS: MethylPREDNISolone 40 MG/ML VIAL IVP SCH (09:14)
[2017-02-19] MEDS: Furosemide 20 MG/2 ML VIAL IVP SCH (09:15)
[2017-02-19] MEDS: D5% in 0.45% NACL 1,000 ML IVC SCH (09:41)
[2017-02-19] MEDS ORDERED: Potassium Chloride Elixir 20 MEQ/15 ML UDC PO ONE (12:12)
[2017-02-19] MEDS: Furosemide 20 MG TABLET PO SCH (17:15)
[2017-02-19] MEDS: Cefdinir 300 MG CAPSULE PO SCH (20:57)
[2017-02-19] MEDS: Pediatric Vitamin w/ iron 1 DROPPERFUL/ML EACH PO SCH (20:57)
[2017-02-20] MEDS: Levalbuterol Neb 1.25 MG/3 ML IH SCH ×4 (04:28→16:48)
[2017-02-20] MEDS: Ipratropium Neb 0.5 MG NEBULIZER IH SCH ×4 (04:28→16:48)
[2017-02-20 06:07] LABS: BUN/Creatinine Ratio 27 (6-26); Blood Urea Nitrogen 12 mg/dL (7-20); Calcium 8.7 mg/dL (8.6-10.8); Carbon Dioxide 32 mEq/L (19-29); Chloride 101 mEq/L (98-109); Glucose 124 mg/dL (70-99); Osmolality,Calculated 293 (280-300); Potassium 3.7 mEq/L (3.5-4.5); Sodium 141 mEq/L (136-145); eGFR For African Americans > 60 (> 60); eGFR For Non-African Americans > 60 (> 60)
[2017-02-20] MEDS: clonazePAM 0.5 MG TABLET GTUBE SCH (06:19)
[2017-02-20] MEDS: Furosemide 20 MG TABLET PO SCH (06:19)
[2017-02-20] MEDS: Primidone 50 MG TABLET GTUBE SCH ×2 (06:21→12:44)
[2017-02-20] MEDS: lamoTRIgine 100 MG TABLET GTUBE SCH ×2 (06:21→12:44)
[2017-02-20] MEDS: Glycopyrrolate 1 MG TABLET GTUBE SCH ×2 (06:22→12:43)
[2017-02-20] MEDS: *HR* Enoxaparin 40 MG/0.4 ML SYRINGE SQ SCH (06:32)
[2017-02-20] MEDS: GuaiFENesin Liq 200 MG/10 ML UDC GTUBE PRN (06:34)
[2017-02-20] MEDS ORDERED: PrednisoLONE Oral Soln 15 MG/5 ML UDC PO SCH (09:00)
[2017-02-20] MEDS: Cefdinir 300 MG CAPSULE PO SCH (09:54)
--- NOTE | 2017-02-20 10:32 | Discharge Summary ---
Date of Encounter: 02/20/17 Time of Encounter: 10:28 - Discharge Diagnosis (1) Respiratory failure Priority: Primary Status: Acute Qualifiers: Chronicity: acute Respiratory failure complication: hypoxia Qualified Code(s): J96.01 - Acute respiratory failure with hypoxia (2) Cerebral palsy Priority: Secondary Status: Chronic Qualifiers: Cerebral palsy type: unspecified type Qualified Code(s): G80.9 - Cerebral palsy, unspecified (3) Human metapneumovirus (hMPV) pneumonia Priority: Primary Status: Acute (4) CAP (community acquired pneumonia) Priority: Primary Status: Acute - Discharge Medications Prescriptions: Ipratropium Neb [Atrovent Neb] 0.5 mg IH [id number] PRN 30 Days PRN Reason: Shortness Of Breath/Wheezing Levalbuterol Neb [Xopenex Neb] 1.25 mg IH [id number] PRN 30 Days PRN Reason: Shortness Of Breath/Wheezing Cefdinir [Omnicef] 300 mg PO BID #18 capsule Lactobacillus Acidophilus [Acidophilus] 1 each GTUBE BID #30 capsule Home Medications: ClonazePAM [Klonopin] 0.75 mg GTUBE TID 05/05/16 [History] Glycopyrrolate [Robinul] 1 mg GTUBE TID 05/05/16 [History] Lamotrigine [Lamictal] 150 mg GTUBE TID 05/05/16 [History] Pediatric Vitamin w/ iron [Poly--Chayo with Iron Drops] 1 ml GTUBE DAILY [History] Primidone [Mysoline] 75 mg GTUBE TID 05/05/16 [History] Cefdinir [Omnicef] 300 mg PO BID #18 capsule 02/20/17 [Rx] Ipratropium Neb [Atrovent Neb] 0.5 mg IH [id number] PRN 30 Days 02/20/17 [Rx] Lactobacillus Acidophilus [Acidophilus] 1 each GTUBE BID #30 capsule 02/20/17 [ Rx] Levalbuterol Neb [Xopenex Neb] 1.25 mg IH [id number] PRN 30 Days 02/20/17 [Rx] Allergies/Adverse Reactions: Allergies levofloxacin [From Levaquin] Allergy (Verified 02/15/17 08:17) See Comments MOTER STATES SHE BECAME RED IN THE FACE AND STARTED SCREAMING IN PAIN Date of admission: 02/14/17 22:51 Primary care physician: Hayley Salinas Consults: 02/15/17 01:28 Consult to Palliative Care [CONS] Routine Comment: evluation and recommendations respirtory failure Consulting Provider: Palliative Care Darlene 02/15/17 12:10 dietary consult [Consult to Nutrition] [CONS] Routine Comment: Consulting Provider: NUTRITION Reason for Dietary Consult: Other 02/16/17 09:25 Consult to Invasive Line Access Team [CONS] Routine Reason for Consult: limited vascular access Line Type: EPIV 02/18/17 10:28 Consult to Invasive Line Access Team [CONS] Routine Reason for Consult: poor vascular access Line Type: EPIV Discharging clinician: Nell Joseph Anticipated date of discharge: 02/20/17 - Patient Status Disposition: Home, Self-Care Condition: Fair Functional capacity at discharge: bed bound Overall status at discharge: patient is progressing back to baseline - Discharge Instructions Instructions: Cefdinir (By mouth), Pneumonia (DC) Follow Up With: Hayley Salinas MD [Primary Care Provider] - 02/26/17 3:45 pm (Please follow up as schedule) - Diet and Activity Activity: resume usual activities as tolerated, wear oxygen at all times Diet: other (Tube feeding) Hospital course: Ms. Hutchison is a 27 year old female with history of cerebral palsy, with associated seizures/bedbound status/PEG tube placement, was admitted with worsening cough and respiratory distress. She was noted to have possible bilateral pneumonia and has been started on IV antibiotics and IV hydration. Patient's respiratory status and oxygen requirements gradually improved. Her fever and leukocytosis improved. Vital serology was positive for human metapneumovirus, and she possibly had bacterial superinfection of viral bronchitis/Pneumonia. Patient continues to be at risk for worsening respiratory failure given her mental status, inability to clear respiratory secretions and bedbound status. She is currently able to tolerate tube feeds and is medically stable for discharge. She does have baseline tachycardia along with intermittent brief seizures and she is on antiepileptic drug therapy. - Time Spent with Patient Total time spent providing and/or coordinating discharge services: Greater than 30 minutes (45 min) - Constitutional Vitals: Temp Pulse Resp BP Pulse Ox 98.7 F 118 20 106/63 93 02/20/17 07:04 02/20/17 07:04 02/20/17 07:04 02/20/17 07:04 02/20/17 07:04 General appearance: Present: A&O X 0 - Respiratory Respiratory exam: Present: CTAB (Coarse breath sounds bilaterally. No wheezing or rhonchi). Absent: accessory muscle use, rales, rhonchi, wheezes - Cardiovascular Cardiovascular exam: Present: RRR, +S1, +S2, tachycardia. Absent: diastolic murmur, gallop, rubs, systolic murmur
[2017-02-20 16:51] VITALS: BP 117/74
--- NOTE | 2017-02-21 15:49 | Internal Med Progress Note ---
Date of Encounter: 02/19/17 Time of Encounter: 14:30 - Assessment and plan (1) Respiratory failure Status: Acute Assessment and plan: Acute hypoxic respiratory failure due to underlying pneumonia. Clinically improving. Continue antibiotics, supplemental oxygen and supportive care. Patient may require home oxygen at the time of discharge. Qualifiers: Chronicity: acute Respiratory failure complication: hypoxia Qualified Code(s): J96.01 - Acute respiratory failure with hypoxia (2) Cerebral palsy Status: Chronic Assessment and plan: Continue home medications and supportive care. Requires higher level of nursing care due to bedbound status and being noncommunicative. Patient is also noted to have secondary seizures due to cerebral palsy, continue home antiepileptic medications. Qualifiers: Cerebral palsy type: unspecified type Qualified Code(s): G80.9 - Cerebral palsy, unspecified (3) Human metapneumovirus (hMPV) pneumonia Status: Acute Assessment and plan: Vital serology positive for human metapneumovirus. Continue empiric antibiotics and supportive care. (4) CAP (community acquired pneumonia) Status: Acute Assessment and plan: Improving slowly. Patient has lost IV access today and patient's mother has requested not to insert another IV line. Since patient is noted to be improving , will switch antibiotics to oral Levaquin. Continue bronchodilators along with supplemental oxygen. Wean down FiO2 as tolerated. High risk patient due to high risk for worsening respiratory failure due to underlying cerebral palsy , inability to clear respiratory secretions, high risk for aspiration; - Subjective Interval history: Patient lying in bed, bed bound and noncommunicative. History obtained from mother at bedside. Patient's condition is noted to be much improved since admission. No reported respiratory distress. - Constitutional Vitals: Temp Pulse Resp BP Pulse Ox 99.0 F 123 18 117/74 91 02/20/17 16:49 02/20/17 16:49 02/20/17 16:49 02/20/17 16:49 02/20/17 16:49 General appearance: Present: A&O X 0 (Bedbound, lying in bed) - Respiratory Respiratory exam: Present: CTAB (Coarse breath sounds bilaterally anterolaterally). Absent: accessory muscle use, rales, rhonchi, wheezes - Cardiovascular Cardiovascular exam: Present: RRR, +S1, +S2, tachycardia. Absent: diastolic murmur, gallop, rubs, systolic murmur - GI/Abdominal GI/Abdominal exam: Present: normal bowel sounds, soft (PEG tube in place), no peritoneal signs. Absent: distended, tenderness - Extremities Exam Extremities exam: Present: warm, radial pulses palpable and symetrical. Absent : calf tenderness, cyanotic, pedal edema Additional comments: Contracted and atrophic extremities bilaterally Internal Medicine: Result - Labs CBC & Chem 7: 02/19/17 07:14 02/20/17 05:40 - ABG Interpretation ABG results: ABG ABG pH 7.40 pH Units (7.32-7.45) 02/15/17 12:08 ABG pCO2 50 mmHg (35-45) H 02/15/17 12:08 ABG pO2 86 mmHg (85-104) 02/15/17 12:08 ABG O2 Saturation 97 % (95-98) 02/15/17 12:08 Consult Discharge Plan - Plan Instructions: Cefdinir (By mouth), Pneumonia (DC) Referrals: Hayley aSlinas MD [Primary Care Provider] - 02/26/17 3:45 pm (Please follow up as schedule) Prescriptions: Ipratropium Neb [Atrovent Neb] 0.5 mg IH [id number] PRN 30 Days PRN Reason: Shortness Of Breath/Wheezing Levalbuterol Neb [Xopenex Neb] 1.25 mg IH [id number] PRN 30 Days PRN Reason: Shortness Of Breath/Wheezing Cefdinir [Omnicef] 300 mg PO BID #18 capsule Lactobacillus Acidophilus [Acidophilus] 1 each GTUBE BID #30 capsule
== END 2017-02-20 17:30 | disposition home or self-care (01) | DRG 871 ==
LOC: ICNU 22:51 → SUATTDRO 22:51 → 2ANU 02-15 03:03
PROVIDERS: ADMIT Internal Medicine; ATTEND Internal Medicine

== ENCOUNTER 2019-10-26 15:04 | Inpatient (IN) ==
[2019-10-26] MEDS ORDERED: Ipratropium/Albuterol Neb 3 ML IH ONE (15:43)
[2019-10-26] MEDS ORDERED: 0.9 % Sodium Chloride 1,000 ML IVC ONE (15:43)
[2019-10-26 16:25] LABS: Basophils # 0.1 K/mcL (0.0-0.2); Basophils % 1.2 %; Eosinophils # 0.2 K/mcL (0.0-0.6); Eosinophils % 3.8 %; Hematocrit 42.6 % (35.3-44.9); Hemoglobin 14.4 g/dL (11.5-15.4); Immature Granulocytes % 0.4 % (0-4); Lymphocytes # 2.7 K/mcL (0.6-4.6); Lymphocytes % 53.9 %; Mean Corpuscular HGB Conc 33.8 g/dL (31.6-35.5); Mean Corpuscular Hemoglobin 32.1 pg (28.0-33.3); Mean Corpuscular Volume 95.1 fL (83.0-100.0); Mean Platelet Volume 12.4 fL (9.4-12.4); Monocytes # 0.7 K/mcL (0.0-1.3); Monocytes % 13.6 %; Neutrophils # 1.4 K/mcL (1.6-8.9); Platelet Count 244 K/mcL (140-400); Red Blood Count 4.48 M/mcL (3.82-4.97); Red Cell Distribution Width 13.3 % (11.5-14.5); Segmented Neutrophils % 27.1 %
[2019-10-26 16:51] LABS: BUN/Creatinine Ratio 30 (6-26); Blood Urea Nitrogen 6 mg/dL (6-20); Calcium 8.3 mg/dL (8.6-10.3); Carbon Dioxide 26 mEq/L (23-29); Chloride 108 mEq/L (98-107); Glucose 98 mg/dL (70-105); Osmolality,Calculated 286 (280-300); Sodium 139 mEq/L (136-145); eGFR For African Americans > 60 (> 60); eGFR For Non-African Americans > 60 (> 60)
[2019-10-26] MEDS ORDERED: Azithromycin 500 MG in 0.9 % Sodium Chloride 250 ML IVPB ONE (17:28)
[2019-10-26] MEDS ORDERED: cefTRIAXone 1,000 MG in 0.9 % Sodium Chloride Mini Bag 100 ML IVPB ONE (17:28)
[2019-10-26] MEDS ORDERED: Ondansetron ODT 4 MG TAB.RAPDIS SL PRN (18:15)
[2019-10-26] MEDS ORDERED: Ondansetron 4 MG/2 ML VIAL IVP PRN (18:15)
[2019-10-26] MEDS ORDERED: Naloxone 0.4 MG/ML INJ IVP PRN (18:15)
[2019-10-26] MEDS ORDERED: levoFLOXacin 750 MG/150 ML 750 MG/150 ML BAG IVPB SCH (18:35)
[2019-10-26] MEDS: Albuterol 2.5 MG/3 ML NEBULIZER IH SCH ×3 (20:28→23:04)
[2019-10-27] MEDS: Albuterol 2.5 MG/3 ML NEBULIZER IH SCH ×6 (04:03→23:31)
[2019-10-27 06:45] LABS: Basophils % 0.5 %; Eosinophils # 0.4 K/mcL (0.0-0.6); Eosinophils % 6.6 %; Immature Granulocytes % 0.2 % (0-4); Lymphocytes # 2.8 K/mcL (0.6-4.6); Lymphocytes % 49.3 %; Mean Corpuscular HGB Conc 31.7 g/dL (31.6-35.5); Mean Corpuscular Hemoglobin 31.7 pg (28.0-33.3); Mean Platelet Volume 12.1 fL (9.4-12.4); Monocytes # 0.6 K/mcL (0.0-1.3); Neutrophils # 1.8 K/mcL (1.6-8.9); Platelet Count 221 K/mcL (140-400); Red Cell Distribution Width 13.4 % (11.5-14.5); Segmented Neutrophils % 32.4 %; White Blood Count 5.6 K/mcL (4.3-11.1)
[2019-10-27 07:11] LABS: Blood Urea Nitrogen 7 mg/dL (6-20); Carbon Dioxide 29 mEq/L (23-29); Chloride 108 mEq/L (98-107); Glucose 112 mg/dL (70-105); Osmolality,Calculated 295 (280-300); Potassium 4.2 mEq/L (3.5-5.1); Sodium 143 mEq/L (136-145)
[2019-10-27] MEDS ORDERED: Ipratropium Neb 0.5 MG NEBULIZER IH PRN (08:04)
[2019-10-27] MEDS: clonazePAM 0.5 MG TABLET GTUBE SCH ×2 (08:44→20:41)
[2019-10-27] MEDS: lamoTRIgine 100 MG TABLET GTUBE SCH ×3 (08:44→20:39)
[2019-10-27] MEDS: Primidone 50 MG TABLET GTUBE SCH ×3 (08:45→20:37)
[2019-10-27] MEDS ORDERED: Pediatric Vitamin w/ iron 1 DROPPERFUL/ML EACH PO SCH ×2 (09:00→21:00)
[2019-10-27] MEDS ORDERED: cefTRIAXone 1,000 MG in Water for inj. (sterile) 10 ML IVP SCH (09:00)
[2019-10-27] MEDS ORDERED: Azithromycin 500 MG in 0.9 % Sodium Chloride 250 ML IVPB SCH (10:00)
[2019-10-27] MEDS: Glycopyrrolate 1 MG TABLET GTUBE SCH ×3 (10:33→20:41)
[2019-10-27] MEDS ORDERED: Doxycycline 100 MG in 0.9 % Sodium Chloride Mini Bag 100 ML IVPB SCH ×2 (11:29→18:00)
[2019-10-27 11:55] LABS: Adenovirus Not Detected (Not Detect); Bordetella Pertussis Not Detected (Not Detect); Chlamydophila pneumoniae Not Detected (Not Detect); Coronavirus 229E Not Detected (Not Detect); Coronavirus HKU1 Not Detected (Not Detect); Coronavirus NL63 Not Detected (Not Detect); Coronavirus OC43 Not Detected (Not Detect); Human Metapneumovirus Not Detected (Not Detect); Human Rhinovirus/Enterovirus Not Detected (Not Detect); Influenza A Subtype 2009 H1 Not Detected (Not Detect); Influenza A Untypeable Not Detected (Not Detect); Influenza B Not Detected (Not Detect); Mycoplasma pneumoniae Not Detected (Not Detect); Parainfluenza Virus 1 Not Detected (Not Detect); Parainfluenza Virus 2 Not Detected (Not Detect); Parainfluenza Virus 3 Not Detected (Not Detect); Parainfluenza Virus 4 Not Detected (Not Detect); Respiratory Syncytial Virus Not Detected (Not Detect)
[2019-10-27] MEDS ORDERED: Fluticasone Propionate Nasal 50 MCG/SPRAY BOTTLE NS SCH (12:00)
[2019-10-27] MEDS: Glycerin RECTAL Suppository RC SCH (12:07)
[2019-10-27] MEDS: Doxycycline 100 MG in 0.9 % Sodium Chloride Mini Bag 100 ML IVPB SCH (15:45)
[2019-10-27] MEDS ORDERED: Acetaminophen 325 MG TABLET PO SCH (18:00)
[2019-10-28] MEDS ORDERED: Acetaminophen IV 500 MG/50 ML INFUS..BTL IVPB ONE (03:24)
[2019-10-28] MEDS: Albuterol 2.5 MG/3 ML NEBULIZER IH SCH ×4 (03:33→16:31)
[2019-10-28 04:00] LABS: Hematocrit 41.6 % (35.3-44.9); Hemoglobin 13.9 g/dL (11.5-15.4); Mean Corpuscular HGB Conc 33.4 g/dL (31.6-35.5); Mean Corpuscular Volume 95.6 fL (83.0-100.0); Mean Platelet Volume 11.6 fL (9.4-12.4); Platelet Count 258 K/mcL (140-400); Red Blood Count 4.35 M/mcL (3.82-4.97); Red Cell Distribution Width 13.2 % (11.5-14.5); White Blood Count 6.9 K/mcL (4.3-11.1)
[2019-10-28] MEDS: Doxycycline 100 MG in 0.9 % Sodium Chloride Mini Bag 100 ML IVPB SCH ×2 (04:17→16:12)
[2019-10-28 04:22] LABS: BUN/Creatinine Ratio 25 (6-26); Blood Urea Nitrogen 5 mg/dL (6-20); Calcium 8.5 mg/dL (8.6-10.3); Carbon Dioxide 30 mEq/L (23-29); Chloride 106 mEq/L (98-107); Glucose 109 mg/dL (70-105); Osmolality,Calculated 292 (280-300); Sodium 142 mEq/L (136-145); eGFR For African Americans > 60 (> 60); eGFR For Non-African Americans > 60 (> 60)
[2019-10-28] MEDS ORDERED: *HR* Enoxaparin 40 MG/0.4 ML SYRINGE SQ SCH (06:00)
[2019-10-28 07:59] VITALS: BP 112/77
[2019-10-28] MEDS ORDERED: clonazePAM 0.5 MG TABLET GTUBE SCH (08:00)
[2019-10-28] MEDS: lamoTRIgine 100 MG TABLET GTUBE SCH ×2 (08:02→12:49)
[2019-10-28] MEDS: Primidone 50 MG TABLET GTUBE SCH ×2 (08:02→12:51)
[2019-10-28] MEDS: Glycopyrrolate 1 MG TABLET GTUBE SCH ×2 (08:03→12:49)
[2019-10-28] MEDS: Glycerin RECTAL Suppository RC SCH (12:38)
== END 2019-10-28 18:45 | disposition home health service (06) | DRG 871 ==
LOC: EMEROOARM 15:04 → 2ANU 15:04 → SUATTDRO 18:57 → 2NENU 20:35 → SUATTDRO 10-27 19:29
PROVIDERS: ADMIT Internal Medicine; ATTEND Internal Medicine

== ENCOUNTER 2021-09-11 03:11 | Inpatient (IN) ==
[2021-09-11 04:49] LABS: Adenovirus Not Detected (Not Detect); Bordetella Pertussis Not Detected (Not Detect); Chlamydophila pneumoniae Not Detected (Not Detect); Coronavirus 229E Not Detected (Not Detect); Coronavirus HKU1 Not Detected (Not Detect); Coronavirus NL63 Not Detected (Not Detect); Coronavirus OC43 Not Detected (Not Detect); Human Metapneumovirus Not Detected (Not Detect); Human Rhinovirus/Enterovirus DETECTED (Not Detect); Influenza A Subtype 2009 H1 Not Detected (Not Detect); Influenza B Not Detected (Not Detect); Mycoplasma pneumoniae Not Detected (Not Detect); Parainfluenza Virus 1 Not Detected (Not Detect); Parainfluenza Virus 2 Not Detected (Not Detect); Parainfluenza Virus 3 Not Detected (Not Detect); Parainfluenza Virus 4 Not Detected (Not Detect); Respiratory Syncytial Virus Not Detected (Not Detect); SARS-CoV-2 Not Detected (Not Detect)
[2021-09-11 04:58] LABS: Basophils % 0.3 %; Eosinophils % 0.4 %; Immature Granulocytes % 0.3 % (0-4); Mean Corpuscular HGB Conc 32.5 g/dL (31.6-35.5); Monocytes % 11.1 %; Red Cell Distribution Width 13.2 % (11.5-14.5)
[2021-09-11 05:00] LABS: Eosinophils # 0.1 K/mcL (0.0-0.6); Hematocrit 46.1 % (35.3-44.9); Immature Platelets 15.6 % (1.1-6.1); Lymphocytes # 1.4 K/mcL (0.6-4.6); Lymphocytes % 9.8 %; Mean Corpuscular Hemoglobin 30.9 pg (28.0-33.3); Mean Corpuscular Volume 94.9 fL (83.0-100.0); Mean Platelet Volume 13.4 fL (9.4-12.4); Monocytes # 1.6 K/mcL (0.0-1.3); Neutrophils # 11.4 K/mcL (1.6-8.9); Platelet Count 195 K/mcL (140-400); Red Blood Count 4.86 M/mcL (3.82-4.97); Segmented Neutrophils % 78.1 %; White Blood Count 14.6 K/mcL (4.3-11.1)
[2021-09-11 05:31] LABS: BUN/Creatinine Ratio 29 (6-26); Blood Urea Nitrogen 7 mg/dL (6-20); Calcium 8.1 mg/dL (8.6-10.3); Carbon Dioxide 27 mEq/L (23-29); Chloride 106 mEq/L (98-107); Glucose 110 mg/dL (70-105); Osmolality,Calculated 287 (280-300); Sodium 139 mEq/L (136-145); eGFR For African Americans > 60 (> 60); eGFR For Non-African Americans > 60 (> 60)
[2021-09-11] MEDS ORDERED: cefTRIAXone 1,000 MG in 0.9 % Sodium Chloride Mini Bag 100 ML IVPB ONE (05:36)
[2021-09-11] MEDS ORDERED: Azithromycin 500 MG in 0.9 % Sodium Chloride 250 ML IVPB ONE (05:37)
[2021-09-11] MEDS ORDERED: 0.9 % Sodium Chloride 1,000 ML IVC ONE (05:49)
[2021-09-11] MEDS ORDERED: Isovue-370 500 ML BOTTLE IVP ONE (05:51)
[2021-09-11] MEDS ORDERED: Naloxone 0.4 MG/ML INJ IVP PRN (06:00)
[2021-09-11] MEDS ORDERED: Melatonin 3 MG TABLET PO PRN (06:00)
[2021-09-11] MEDS ORDERED: Acetaminophen 325 MG TABLET PO PRN (06:00)
[2021-09-11] MEDS: MethylPREDNISolone 40 MG/ML VIAL IVP SCH ×2 (06:33→17:49)
[2021-09-11] MEDS: Ipratropium/Albuterol Neb 3 ML IH SCH ×3 (06:47→16:41)
[2021-09-11] MEDS: *HR* Heparin 5,000 UNIT/ML VIAL SQ SCH ×2 (07:39→17:50)
[2021-09-11] MEDS ORDERED: clonazePAM 0.5 MG TABLET GTUBE ONE (07:45)
[2021-09-11] MEDS: lamoTRIgine 100 MG TABLET GTUBE SCH ×3 (09:39→21:06)
[2021-09-11] MEDS: Primidone 50 MG TABLET GTUBE SCH ×3 (09:39→21:04)
[2021-09-11] MEDS: Glycopyrrolate 1 MG TABLET GTUBE SCH ×3 (10:50→21:06)
[2021-09-11] MEDS ORDERED: *HR* LORazepam 2 MG/ML VIAL IVP PRN (13:16)
[2021-09-11] MEDS: GuaiFENesin Liq 200 MG/10 ML UDC GTUBE SCH (17:50)
[2021-09-11] MEDS ORDERED: Levalbuterol Neb 0.63 MG/3 ML ONE (19:40)
[2021-09-11] MEDS: Levalbuterol Neb 0.63 MG/3 ML IH SCH ×2 (19:52→23:31)
[2021-09-12] MEDS ORDERED: *HR* Metoprolol 5 MG/5 ML VIAL IVP ONE (00:25)
[2021-09-12] MEDS: GuaiFENesin Liq 200 MG/10 ML UDC GTUBE SCH ×2 (00:53→06:33)
[2021-09-12] MEDS: Levalbuterol Neb 0.63 MG/3 ML IH SCH ×4 (04:08→15:35)
[2021-09-12 04:35] LABS: Basophils % 0.2 %; Hematocrit 38.2 % (35.3-44.9); Hemoglobin 12.2 g/dL (11.5-15.4); Immature Granulocytes % 0.2 % (0-4); Immature Platelets 14.4 % (1.1-6.1); Lymphocytes # 1.7 K/mcL (0.6-4.6); Lymphocytes % 18.8 %; Mean Corpuscular HGB Conc 31.9 g/dL (31.6-35.5); Mean Corpuscular Hemoglobin 30.3 pg (28.0-33.3); Mean Platelet Volume 13.6 fL (9.4-12.4); Monocytes # 0.9 K/mcL (0.0-1.3); Monocytes % 9.7 %; Neutrophils # 6.2 K/mcL (1.6-8.9); Platelet Count 169 K/mcL (140-400); Red Blood Count 4.02 M/mcL (3.82-4.97); Red Cell Distribution Width 13.2 % (11.5-14.5); Segmented Neutrophils % 71.1 %; White Blood Count 8.8 K/mcL (4.3-11.1)
[2021-09-12 04:53] LABS: BUN/Creatinine Ratio 19 (6-26); Blood Urea Nitrogen 5 mg/dL (6-20); Calcium 7.9 mg/dL (8.6-10.3); Carbon Dioxide 29 mEq/L (23-29); Chloride 109 mEq/L (98-107); Glucose 148 mg/dL (70-105); Magnesium 2.3 mg/dL (1.6-2.6); Osmolality,Calculated 292 (280-300); Potassium 4.1 mEq/L (3.5-5.1); Sodium 141 mEq/L (136-145); eGFR For African Americans > 60 (> 60); eGFR For Non-African Americans > 60 (> 60)
[2021-09-12] MEDS ORDERED: Azithromycin 500 MG in 0.9 % Sodium Chloride 250 ML IVPB SCH (06:00)
[2021-09-12] MEDS: MethylPREDNISolone 40 MG/ML VIAL IVP SCH (06:27)
[2021-09-12] MEDS: cefTRIAXone 1,000 MG in Water for inj. (sterile) 10 ML IVP SCH ×2 (06:30→09:06)
[2021-09-12] MEDS: *HR* Heparin 5,000 UNIT/ML VIAL SQ SCH (06:33)
[2021-09-12 08:16] VITALS: BP 112/70; PULSE 83; TEMP 97.6
[2021-09-12] MEDS: lamoTRIgine 100 MG TABLET GTUBE SCH (09:08)
[2021-09-12] MEDS: Glycopyrrolate 1 MG TABLET GTUBE SCH (09:08)
[2021-09-12] MEDS: Primidone 50 MG TABLET GTUBE SCH (09:09)
[2021-09-12 12:46] VITALS: O2SAT 94
== END 2021-09-12 15:34 | disposition home or self-care (01) | DRG 871 ==
LOC: EMEROOARM 03:11 → 3BNU 03:11 → OBSVTOIN 06:09 → SUATTDRO 06:09 → 3BNU 08:29
PROVIDERS: ADMIT Internal Medicine; ATTEND Internal Medicine

== ENCOUNTER 2022-02-09 11:42 | Inpatient (IN) ==
[2022-02-09] MEDS ORDERED: 0.9 % Sodium Chloride 1,000 ML IVC ONE (13:00)
[2022-02-09 14:11] LABS: Influenza A PCR Positive (Negative); Influenza B PCR Negative (Negative); Resp. Syncytial Virus PCR Negative (Negative); SARS-CoV-2 by PCR (In House) Negative (Negative)
[2022-02-09 14:30] LABS: Red Cell Distribution Width 14.4 % (11.5-14.5)
[2022-02-09 14:32] LABS: Hematocrit 40.6 % (35.3-44.9); Hemoglobin 13.7 g/dL (11.5-15.4); Immature Platelets 19.1 % (1.1-6.1); Mean Corpuscular HGB Conc 33.7 g/dL (31.6-35.5); Mean Corpuscular Hemoglobin 31.7 pg (28.0-33.3); Platelet Count 121 K/mcL (140-400); Red Blood Count 4.32 M/mcL (3.82-4.97); White Blood Count 8.1 K/mcL (4.3-11.1)
[2022-02-09 14:36] LABS: BUN/Creatinine Ratio 24 (6-26); Blood Urea Nitrogen 8 mg/dL (6-20); Calcium 8.4 mg/dL (8.6-10.3); Carbon Dioxide 25 mEq/L (23-29); Chloride 102 mEq/L (98-107); Glucose 119 mg/dL (70-105); Osmolality,Calculated 279 (280-300); Potassium 3.1 mEq/L (3.5-5.1); Sodium 135 mEq/L (136-145); eGFR For African Americans > 60 (> 60); eGFR For Non-African Americans > 60 (> 60)
[2022-02-09] MEDS ORDERED: Azithromycin 500 MG in 0.9 % Sodium Chloride 250 ML IVPB ONE (14:36)
[2022-02-09] MEDS ORDERED: cefTRIAXone 1,000 MG in 0.9 % Sodium Chloride 10 ML IVP ONE (14:36)
[2022-02-09] MEDS ORDERED: Naloxone 0.4 MG/ML INJ IVP PRN (15:07)
[2022-02-09 15:21] LABS: Monocytes # 0.2 K/mcL (0.0-1.3); Neutrophils # 7.9 K/mcL (1.6-8.9)
[2022-02-09 15:22] LABS: Anisocytosis 1+ (Not Present); Large Platelets Present (Not Present); Macrocytosis Present (Not Present); Platelet Estimate Slight Decrease (Normal)
[2022-02-09] MEDS ORDERED: Albuterol 2.5 MG/3 ML NEBULIZER IH PRN (15:40)
[2022-02-09] MEDS: 0.9 % Sodium Chloride 1,000 ML IVC SCH (18:06)
[2022-02-09] MEDS: Oseltamivir 6 MG/ML UDC GTUBE SCH ×2 (18:13→23:11)
[2022-02-09] MEDS: Ondansetron 4 MG/2 ML VIAL IVP PRN (19:45)
[2022-02-09] MEDS ORDERED: Acetaminophen 325 MG RECTAL SUPP RC PRN (20:57)
[2022-02-09] MEDS: lamoTRIgine 100 MG TABLET GTUBE SCH (21:07)
[2022-02-09] MEDS: Primidone 50 MG TABLET GTUBE SCH (21:07)
[2022-02-09] MEDS: Glycopyrrolate 1 MG TABLET GTUBE SCH (21:07)
[2022-02-09] MEDS: Levalbuterol Neb 1.25 MG/3 ML IH SCH (21:55)
[2022-02-10] MEDS: 0.9 % Sodium Chloride 1,000 ML IVC SCH ×2 (02:25→13:07)
[2022-02-10] MEDS: Levalbuterol Neb 1.25 MG/3 ML IH SCH ×5 (03:51→20:03)
[2022-02-10] MEDS: Acetylcysteine 10% 2 ML INHSOL IH SCH ×4 (03:52→20:03)
[2022-02-10 05:02] LABS: Basophils % 0.2 %; Red Cell Distribution Width 14.5 % (11.5-14.5)
[2022-02-10 05:04] LABS: Hematocrit 42.2 % (35.3-44.9); Immature Granulocytes % 0.2 % (0-4); Immature Platelets 18.8 % (1.1-6.1); Lymphocytes % 20.7 %; Mean Corpuscular HGB Conc 33.2 g/dL (31.6-35.5); Mean Corpuscular Hemoglobin 31.3 pg (28.0-33.3); Mean Corpuscular Volume 94.4 fL (83.0-100.0); Mean Platelet Volume 13.4 fL (9.4-12.4); Monocytes # 0.5 K/mcL (0.0-1.3); Monocytes % 10.6 %; Neutrophils # 3.3 K/mcL (1.6-8.9); Platelet Count 111 K/mcL (140-400); Red Blood Count 4.47 M/mcL (3.82-4.97); Segmented Neutrophils % 68.3 %; White Blood Count 4.8 K/mcL (4.3-11.1)
[2022-02-10 05:17] LABS: Albumin 3.7 g/dL (3.5-5.7); Albumin/Globulin Ratio 1.5 (1.1-2.2); BUN/Creatinine Ratio 15 (6-26); Bilirubin,Direct 0.1 mg/dL (0.0-0.2); Bilirubin,Indirect 0.2 mg/dL (0.0-1.0); Bilirubin,Total 0.3 mg/dL (0.3-1.0); Blood Urea Nitrogen 4 mg/dL (6-20); Calcium 8.2 mg/dL (8.6-10.3); Carbon Dioxide 24 mEq/L (23-29); Chloride 105 mEq/L (98-107); Globulin 2.4 g/dL (2.4-3.5); Glucose 101 mg/dL (70-105); Magnesium 1.9 mg/dL (1.6-2.6); Osmolality,Calculated 281 (280-300); Phosphorous 2.2 mg/dL (2.7-4.5); Potassium 3.2 mEq/L (3.5-5.1); Sodium 137 mEq/L (136-145); Total Protein 6.1 g/dL (6.4-8.9); eGFR For African Americans > 60 (> 60); eGFR For Non-African Americans > 60 (> 60)
[2022-02-10] MEDS ORDERED: Potassium Chloride Elixir 20 MEQ/15 ML UDC GTUBE ONE ×2 (05:20→06:00)
[2022-02-10] MEDS ORDERED: cefTRIAXone 1,000 MG in 0.9 % Sodium Chloride 10 ML IVP SCH ×2 (06:00→09:00)
[2022-02-10] MEDS: Oseltamivir 6 MG/ML UDC GTUBE SCH ×3 (06:53→20:51)
[2022-02-10] MEDS ORDERED: Acetaminophen IV 500 MG/50 ML BAG IVPB ONE (07:30)
[2022-02-10] MEDS: MethylPREDNISolone 40 MG/ML VIAL IVP SCH (08:39)
[2022-02-10] MEDS ORDERED: Lactulose 200 GM, Sodium Chloride IRRigation 700 ML RC ONE (09:00)
[2022-02-10] MEDS ORDERED: Bisacodyl 10 MG RECTAL SUPPOSITORY RC SCH (09:00)
[2022-02-10] MEDS: Glycopyrrolate 1 MG TABLET GTUBE SCH ×3 (09:24→20:49)
[2022-02-10] MEDS: lamoTRIgine 100 MG TABLET GTUBE SCH ×3 (09:30→20:50)
[2022-02-10] MEDS: Primidone 50 MG TABLET GTUBE SCH ×3 (09:31→20:50)
[2022-02-10] MEDS: Azithromycin 500 MG in 0.9 % Sodium Chloride 250 ML IVPB SCH (10:31)
[2022-02-10] MEDS ORDERED: Acetaminophen IV 500 MG/50 ML BAG IVPB PRN (10:35)
[2022-02-10] MEDS ORDERED: *HR* LORazepam 2 MG/ML VIAL IVP PRN (11:32)
[2022-02-10] MEDS: Ondansetron 4 MG/2 ML VIAL IVP PRN (11:36)
[2022-02-10] MEDS: Bisacodyl 10 MG RECTAL SUPPOSITORY RC SCH (11:39)
[2022-02-10] MEDS: Ampicillin/Sulbactam 3,000 MG in 0.9 % Sodium Chloride Mini Bag 100 ML IVPB SCH ×2 (11:39→19:51)
[2022-02-10] MEDS ORDERED: Lactulose 200 GM, Sodium Chloride IRRigation 700 ML RC SCH (13:00)
[2022-02-10] MEDS: Lactulose Oral Soln 20 GM/30 ML UDC PO SCH ×2 (13:06→20:51)
[2022-02-10] MEDS ORDERED: Lactulose Oral Soln 20 GM/30 ML UDC PO SCH (15:00)
[2022-02-10] MEDS ORDERED: Azithromycin 500 MG in 0.9 % Sodium Chloride 250 ML IVPB SCH (16:00)
[2022-02-11] MEDS: Levalbuterol Neb 1.25 MG/3 ML IH SCH ×7 (00:35→23:25)
[2022-02-11] MEDS: Ampicillin/Sulbactam 3,000 MG in 0.9 % Sodium Chloride Mini Bag 100 ML IVPB SCH ×4 (00:37→19:00)
[2022-02-11] MEDS: Bisacodyl 10 MG RECTAL SUPPOSITORY RC SCH ×3 (01:22→22:03)
[2022-02-11] MEDS: 0.9 % Sodium Chloride 1,000 ML IVC SCH (01:22)
[2022-02-11] MEDS: Acetylcysteine 10% 2 ML INHSOL IH SCH ×4 (04:25→20:05)
[2022-02-11 05:37] LABS: Basophils % 0.2 %; Hematocrit 42.3 % (35.3-44.9); Hemoglobin 13.6 g/dL (11.5-15.4); Immature Granulocytes % 0.2 % (0-4); Mean Corpuscular HGB Conc 32.2 g/dL (31.6-35.5); Mean Corpuscular Volume 96.4 fL (83.0-100.0); Red Blood Count 4.39 M/mcL (3.82-4.97)
[2022-02-11 05:39] LABS: Eosinophils % 0.2 %; Immature Platelets 20.6 % (1.1-6.1); Lymphocytes % 11.5 %; Monocytes # 0.5 K/mcL (0.0-1.3); Platelet Count 95 K/mcL (140-400); Red Cell Distribution Width 14.6 % (11.5-14.5); Segmented Neutrophils % 81.9 %; White Blood Count 8.5 K/mcL (4.3-11.1)
[2022-02-11 06:17] LABS: Alanine Aminotransferase 20 Units/L (7-52); Albumin 3.4 g/dL (3.5-5.7); Albumin/Globulin Ratio 1.5 (1.1-2.2); Alkaline Phosphatase 53 Units/L (34-104); Aspartate Amino Transferase 30 Units/L (13-39); BUN/Creatinine Ratio 9 (6-26); Bilirubin,Total 0.3 mg/dL (0.3-1.0); Blood Urea Nitrogen 2 mg/dL (6-20); Carbon Dioxide 19 mEq/L (23-29); Chloride 108 mEq/L (98-107); Globulin 2.3 g/dL (2.4-3.5); Glucose 83 mg/dL (70-105); Osmolality,Calculated 283 (280-300); Potassium 3.8 mEq/L (3.5-5.1); Sodium 139 mEq/L (136-145); Total Protein 5.7 g/dL (6.4-8.9); eGFR For African Americans > 60 (> 60); eGFR For Non-African Americans > 60 (> 60)
[2022-02-11] MEDS: Primidone 50 MG TABLET GTUBE SCH ×2 (10:23→16:02)
[2022-02-11] MEDS: MethylPREDNISolone 40 MG/ML VIAL IVP SCH (10:23)
[2022-02-11] MEDS: lamoTRIgine 100 MG TABLET GTUBE SCH ×3 (10:24→22:15)
[2022-02-11] MEDS: Azithromycin 500 MG in 0.9 % Sodium Chloride 250 ML IVPB SCH (10:25)
[2022-02-11] MEDS: Glycopyrrolate 1 MG TABLET GTUBE SCH ×3 (10:25→22:14)
[2022-02-11] MEDS: Lactulose Oral Soln 20 GM/30 ML UDC PO SCH ×3 (10:49→22:03)
[2022-02-11] MEDS: Oseltamivir 6 MG/ML UDC GTUBE SCH ×2 (10:53→22:20)
[2022-02-12] MEDS: Primidone 50 MG TABLET GTUBE SCH ×4 (00:06→20:30)
[2022-02-12] MEDS: Ampicillin/Sulbactam 3,000 MG in 0.9 % Sodium Chloride Mini Bag 100 ML IVPB SCH ×5 (00:19→23:53)
[2022-02-12] MEDS: Acetylcysteine 10% 2 ML INHSOL IH SCH ×4 (03:47→19:59)
[2022-02-12] MEDS: Levalbuterol Neb 1.25 MG/3 ML IH SCH ×6 (03:47→23:03)
[2022-02-12] MEDS: Lactulose Oral Soln 20 GM/30 ML UDC PO SCH ×3 (08:52→20:32)
[2022-02-12] MEDS: Bisacodyl 10 MG RECTAL SUPPOSITORY RC SCH ×2 (08:52→20:32)
[2022-02-12] MEDS: Azithromycin 500 MG in 0.9 % Sodium Chloride 250 ML IVPB SCH (09:13)
[2022-02-12] MEDS: Glycopyrrolate 1 MG TABLET GTUBE SCH ×3 (09:14→20:30)
[2022-02-12] MEDS: lamoTRIgine 100 MG TABLET GTUBE SCH ×3 (09:14→20:31)
[2022-02-12] MEDS: MethylPREDNISolone 40 MG/ML VIAL IVP SCH ×3 (09:15→20:32)
[2022-02-12 10:15] LABS: Basophils % 0.3 %; Eosinophils % 0.3 %; Hemoglobin 12.9 g/dL (11.5-15.4); Immature Granulocytes % 0.3 % (0-4)
[2022-02-12 10:16] LABS: Hematocrit 39.1 % (35.3-44.9); Lymphocytes # 1.9 K/mcL (0.6-4.6); Lymphocytes % 48.7 %; Mean Platelet Volume 13.6 fL (9.4-12.4); Monocytes # 0.5 K/mcL (0.0-1.3); Monocytes % 11.7 %; Neutrophils # 1.5 K/mcL (1.6-8.9); Platelet Count 116 K/mcL (140-400); Red Blood Count 4.16 M/mcL (3.82-4.97); Red Cell Distribution Width 14.6 % (11.5-14.5); Segmented Neutrophils % 38.7 %; White Blood Count 3.9 K/mcL (4.3-11.1)
[2022-02-12 10:34] LABS: Alanine Aminotransferase 39 Units/L (7-52); Albumin 3.3 g/dL (3.5-5.7); Albumin/Globulin Ratio 1.6 (1.1-2.2); Alkaline Phosphatase 45 Units/L (34-104); Aspartate Amino Transferase 45 Units/L (13-39); BUN/Creatinine Ratio 8 (6-26); Bilirubin,Total 0.3 mg/dL (0.3-1.0); Blood Urea Nitrogen 2 mg/dL (6-20); Calcium 8.2 mg/dL (8.6-10.3); Carbon Dioxide 30 mEq/L (23-29); Chloride 102 mEq/L (98-107); Globulin 2.1 g/dL (2.4-3.5); Glucose 103 mg/dL (70-105); Osmolality,Calculated 284 (280-300); Potassium 3.1 mEq/L (3.5-5.1); Sodium 139 mEq/L (136-145); Total Protein 5.4 g/dL (6.4-8.9); eGFR For African Americans > 60 (> 60); eGFR For Non-African Americans > 60 (> 60)
[2022-02-12] MEDS: Oseltamivir 6 MG/ML UDC GTUBE SCH ×2 (11:09→20:42)
[2022-02-12] MEDS ORDERED: Potassium Chloride Elixir 20 MEQ/15 ML UDC PO ONE ×2 (19:42→20:45)
[2022-02-12 21:11] LABS: VBG HCO3 23 mEq/L (21-27); VBG PCO2 19 mmHg (41-51); VBG PH 7.67 pH Units (7.32-7.42); VBG PO2 184 mmHg (25-50)
[2022-02-12] MEDS ORDERED: *HR* LORazepam 2 MG/ML VIAL IVP ONE (21:38)
[2022-02-13] MEDS: Dexmedetomidine HCl 400 MCG/100 ML MLS IVC SCH ×2 (00:49→13:28)
[2022-02-13 03:46] LABS: Basophils % 0.5 %; Hematocrit 40.6 % (35.3-44.9); Hemoglobin 13.2 g/dL (11.5-15.4); Immature Granulocytes % 2.2 % (0-4); Immature Platelets 15.9 % (1.1-6.1); Lymphocytes # 0.8 K/mcL (0.6-4.6); Lymphocytes % 41.8 %; Mean Corpuscular HGB Conc 32.5 g/dL (31.6-35.5); Mean Corpuscular Hemoglobin 30.6 pg (28.0-33.3); Mean Corpuscular Volume 94.2 fL (83.0-100.0); Mean Platelet Volume 13.8 fL (9.4-12.4); Monocytes # 0.1 K/mcL (0.0-1.3); Monocytes % 7.7 %; Neutrophils # 0.9 K/mcL (1.6-8.9); Platelet Count 123 K/mcL (140-400); Red Blood Count 4.31 M/mcL (3.82-4.97); Red Cell Distribution Width 14.3 % (11.5-14.5); Segmented Neutrophils % 47.8 %; White Blood Count 1.8 K/mcL (4.3-11.1)
[2022-02-13 04:06] LABS: BUN/Creatinine Ratio 10 (6-26); Blood Urea Nitrogen 2 mg/dL (6-20); Calcium 8.4 mg/dL (8.6-10.3); Carbon Dioxide 26 mEq/L (23-29); Chloride 105 mEq/L (98-107); Glucose 114 mg/dL (70-105); Osmolality,Calculated 283 (280-300); Potassium 4.5 mEq/L (3.5-5.1); Sodium 138 mEq/L (136-145); eGFR For African Americans > 60 (> 60); eGFR For Non-African Americans > 60 (> 60)
[2022-02-13] MEDS: Levalbuterol Neb 1.25 MG/3 ML IH SCH ×5 (04:09→20:25)
[2022-02-13] MEDS: Acetylcysteine 10% 2 ML INHSOL IH SCH ×4 (04:09→20:25)
[2022-02-13] MEDS: Ampicillin/Sulbactam 3,000 MG in 0.9 % Sodium Chloride Mini Bag 100 ML IVPB SCH ×4 (05:55→23:10)
[2022-02-13] MEDS: lamoTRIgine 100 MG TABLET GTUBE SCH ×3 (09:53→20:13)
[2022-02-13] MEDS: Primidone 50 MG TABLET GTUBE SCH ×3 (09:53→20:14)
[2022-02-13] MEDS: Glycopyrrolate 1 MG TABLET GTUBE SCH ×3 (09:53→20:12)
[2022-02-13] MEDS: Bisacodyl 10 MG RECTAL SUPPOSITORY RC SCH ×2 (09:54→20:14)
[2022-02-13] MEDS: MethylPREDNISolone 40 MG/ML VIAL IVP SCH ×3 (09:54→20:17)
[2022-02-13] MEDS: Lactulose Oral Soln 20 GM/30 ML UDC PO SCH ×3 (09:54→20:19)
[2022-02-13] MEDS: Azithromycin 500 MG in 0.9 % Sodium Chloride 250 ML IVPB SCH (09:54)
[2022-02-13] MEDS: Oseltamivir 6 MG/ML UDC GTUBE SCH ×2 (09:59→20:21)
[2022-02-13 10:44] LABS: VBG HCO3 28 mEq/L (21-27); VBG PCO2 35 mmHg (41-51); VBG PO2 212 mmHg (25-50)
[2022-02-13 16:49] LABS: VBG HCO3 28 mEq/L (21-27); VBG PCO2 40 mmHg (41-51); VBG PH 7.45 pH Units (7.32-7.42); VBG PO2 220 mmHg (25-50)
[2022-02-13 18:27] LABS: VBG HCO3 27 mEq/L (21-27); VBG PCO2 38 mmHg (41-51); VBG PH 7.47 pH Units (7.32-7.42); VBG PO2 232 mmHg (25-50)
[2022-02-14 00:53] LABS: VBG HCO3 28 mEq/L (21-27); VBG PCO2 39 mmHg (41-51); VBG PH 7.46 pH Units (7.32-7.42); VBG PO2 91 mmHg (25-50)
[2022-02-14] MEDS: Acetylcysteine 10% 2 ML INHSOL IH SCH ×4 (04:07→20:39)
[2022-02-14] MEDS: Levalbuterol Neb 1.25 MG/3 ML IH SCH ×6 (04:07→20:39)
[2022-02-14] MEDS: Dexmedetomidine HCl 400 MCG/100 ML MLS IVC SCH ×3 (05:15→21:52)
[2022-02-14] MEDS: Ampicillin/Sulbactam 3,000 MG in 0.9 % Sodium Chloride Mini Bag 100 ML IVPB SCH ×3 (05:16→19:34)
[2022-02-14 05:47] LABS: Basophils % 0.3 %
[2022-02-14 05:49] LABS: Hematocrit 39.4 % (35.3-44.9); Hemoglobin 12.9 g/dL (11.5-15.4); Immature Granulocytes % 1.1 % (0-4); Immature Platelets 14.3 % (1.1-6.1); Lymphocytes # 1.7 K/mcL (0.6-4.6); Lymphocytes % 45.8 %; Mean Corpuscular HGB Conc 32.7 g/dL (31.6-35.5); Mean Corpuscular Hemoglobin 30.9 pg (28.0-33.3); Mean Corpuscular Volume 94.3 fL (83.0-100.0); Monocytes # 0.4 K/mcL (0.0-1.3); Monocytes % 10.3 %; Neutrophils # 1.5 K/mcL (1.6-8.9); Platelet Count 133 K/mcL (140-400); Red Blood Count 4.18 M/mcL (3.82-4.97); Red Cell Distribution Width 14.5 % (11.5-14.5); Segmented Neutrophils % 42.5 %; White Blood Count 3.6 K/mcL (4.3-11.1)
[2022-02-14 07:16] LABS: Alanine Aminotransferase 26 Units/L (7-52); Albumin 3.5 g/dL (3.5-5.7); Albumin/Globulin Ratio 1.7 (1.1-2.2); Alkaline Phosphatase 42 Units/L (34-104); Aspartate Amino Transferase 19 Units/L (13-39); BUN/Creatinine Ratio 24 (6-26); Bilirubin,Total 0.2 mg/dL (0.3-1.0); Blood Urea Nitrogen 5 mg/dL (6-20); Calcium 8.4 mg/dL (8.6-10.3); Carbon Dioxide 29 mEq/L (23-29); Chloride 106 mEq/L (98-107); Globulin 2.1 g/dL (2.4-3.5); Glucose 146 mg/dL (70-105); Osmolality,Calculated 292 (280-300); Potassium 3.7 mEq/L (3.5-5.1); Sodium 141 mEq/L (136-145); Total Protein 5.6 g/dL (6.4-8.9); eGFR For African Americans > 60 (> 60); eGFR For Non-African Americans > 60 (> 60)
[2022-02-14] MEDS: Glycopyrrolate 1 MG TABLET GTUBE SCH ×3 (08:25→20:54)
[2022-02-14] MEDS: lamoTRIgine 100 MG TABLET GTUBE SCH ×3 (08:28→20:50)
[2022-02-14] MEDS: Primidone 50 MG TABLET GTUBE SCH ×3 (08:29→20:50)
[2022-02-14] MEDS: Bisacodyl 10 MG RECTAL SUPPOSITORY RC SCH ×2 (08:30→20:49)
[2022-02-14] MEDS: MethylPREDNISolone 40 MG/ML VIAL IVP SCH ×3 (08:31→20:49)
[2022-02-14] MEDS: Azithromycin 500 MG in 0.9 % Sodium Chloride 250 ML IVPB SCH (08:31)
[2022-02-14] MEDS: Lactulose Oral Soln 20 GM/30 ML UDC PO SCH ×3 (08:33→20:49)
[2022-02-14] MEDS: Docusate Oral Soln 100 MG/10 ML UDC GTUBE SCH ×2 (16:34→20:48)
[2022-02-15] MEDS: Levalbuterol Neb 1.25 MG/3 ML IH SCH ×7 (00:05→23:19)
[2022-02-15] MEDS: Ampicillin/Sulbactam 3,000 MG in 0.9 % Sodium Chloride Mini Bag 100 ML IVPB SCH ×5 (00:39→23:38)
[2022-02-15] MEDS: Acetylcysteine 10% 2 ML INHSOL IH SCH ×4 (04:28→20:14)
[2022-02-15 04:52] LABS: VBG HCO3 30 mEq/L (21-27); VBG PCO2 47 mmHg (41-51); VBG PH 7.41 pH Units (7.32-7.42); VBG PO2 140 mmHg (25-50)
[2022-02-15 05:36] LABS: BUN/Creatinine Ratio 25 (6-26); Blood Urea Nitrogen 7 mg/dL (6-20); Calcium 8.4 mg/dL (8.6-10.3); Carbon Dioxide 30 mEq/L (23-29); Chloride 107 mEq/L (98-107); Glucose 143 mg/dL (70-105); Osmolality,Calculated 294 (280-300); Potassium 3.6 mEq/L (3.5-5.1); Red Cell Distribution Width 14.4 % (11.5-14.5); Sodium 142 mEq/L (136-145); eGFR For African Americans > 60 (> 60); eGFR For Non-African Americans > 60 (> 60)
[2022-02-15 05:38] LABS: Basophils % 0.3 %; Hematocrit 38.1 % (35.3-44.9); Hemoglobin 12.7 g/dL (11.5-15.4); Immature Granulocytes % 2.1 % (0-4); Immature Platelets 13.1 % (1.1-6.1); Lymphocytes # 1.9 K/mcL (0.6-4.6); Lymphocytes % 49.6 %; Mean Corpuscular HGB Conc 33.3 g/dL (31.6-35.5); Mean Corpuscular Hemoglobin 31.7 pg (28.0-33.3); Mean Platelet Volume 12.9 fL (9.4-12.4); Monocytes # 0.6 K/mcL (0.0-1.3); Monocytes % 14.8 %; Neutrophils # 1.3 K/mcL (1.6-8.9); Platelet Count 157 K/mcL (140-400); Red Blood Count 4.01 M/mcL (3.82-4.97); Segmented Neutrophils % 33.2 %; White Blood Count 3.9 K/mcL (4.3-11.1)
[2022-02-15] MEDS: Glycopyrrolate 1 MG TABLET GTUBE SCH ×3 (08:44→20:22)
[2022-02-15] MEDS: lamoTRIgine 100 MG TABLET GTUBE SCH ×3 (08:44→20:23)
[2022-02-15] MEDS: Bisacodyl 10 MG RECTAL SUPPOSITORY RC SCH ×3 (08:45→20:23)
[2022-02-15] MEDS: Primidone 50 MG TABLET GTUBE SCH ×3 (08:45→20:23)
[2022-02-15] MEDS: Azithromycin 500 MG in 0.9 % Sodium Chloride 250 ML IVPB SCH (08:46)
[2022-02-15] MEDS: Docusate Oral Soln 100 MG/10 ML UDC GTUBE SCH ×2 (08:46→20:22)
[2022-02-15] MEDS: Lactulose Oral Soln 20 GM/30 ML UDC PO SCH ×2 (08:47→20:23)
[2022-02-15] MEDS: MethylPREDNISolone 40 MG/ML VIAL IVP SCH ×2 (09:05→17:11)
[2022-02-15] MEDS: Dexmedetomidine HCl 400 MCG/100 ML MLS IVC SCH (11:56)
[2022-02-16] MEDS: Dexmedetomidine HCl 400 MCG/100 ML MLS IVC SCH (00:32)
[2022-02-16] MEDS: Levalbuterol Neb 1.25 MG/3 ML IH SCH ×6 (03:53→23:35)
[2022-02-16] MEDS: Acetylcysteine 10% 2 ML INHSOL IH SCH ×4 (03:53→20:07)
[2022-02-16 05:24] LABS: VBG HCO3 28 mEq/L (21-27); VBG PCO2 40 mmHg (41-51); VBG PH 7.46 pH Units (7.32-7.42); VBG PO2 121 mmHg (25-50)
[2022-02-16 05:55] LABS: BUN/Creatinine Ratio 38 (6-26); Blood Urea Nitrogen 8 mg/dL (6-20); Calcium 8.3 mg/dL (8.6-10.3); Carbon Dioxide 30 mEq/L (23-29); Chloride 106 mEq/L (98-107); Glucose 100 mg/dL (70-105); Osmolality,Calculated 292 (280-300); Potassium 3.4 mEq/L (3.5-5.1); Sodium 142 mEq/L (136-145); eGFR For African Americans > 60 (> 60); eGFR For Non-African Americans > 60 (> 60)
[2022-02-16] MEDS: MethylPREDNISolone 40 MG/ML VIAL IVP SCH ×2 (06:06→17:48)
[2022-02-16] MEDS: Ampicillin/Sulbactam 3,000 MG in 0.9 % Sodium Chloride Mini Bag 100 ML IVPB SCH ×2 (06:06→12:48)
[2022-02-16] MEDS ORDERED: Potassium Chloride Elixir 20 MEQ/15 ML UDC GTUBE ONE (07:24)
[2022-02-16] MEDS: Primidone 50 MG TABLET GTUBE SCH ×3 (08:59→21:10)
[2022-02-16] MEDS: Docusate Oral Soln 100 MG/10 ML UDC GTUBE SCH ×3 (08:59→21:18)
[2022-02-16] MEDS: Glycopyrrolate 1 MG TABLET GTUBE SCH ×3 (09:00→21:12)
[2022-02-16] MEDS: lamoTRIgine 100 MG TABLET GTUBE SCH ×3 (09:00→21:10)
[2022-02-16] MEDS: Azithromycin 500 MG in 0.9 % Sodium Chloride 250 ML IVPB SCH (09:00)
[2022-02-16] MEDS: Lactulose Oral Soln 20 GM/30 ML UDC PO SCH (10:25)
[2022-02-16] MEDS: Bisacodyl 10 MG RECTAL SUPPOSITORY RC SCH ×2 (10:26→21:12)
[2022-02-16] MEDS ORDERED: Saline Nasal Spray 44 ML BOTTLE NS PRN (11:50)
[2022-02-16] MEDS ORDERED: Dexmedetomidine HCl 400 MCG/100 ML MLS IVC SCH (13:29)
[2022-02-16] MEDS: Famotidine 20 MG/2 ML VIAL IVP SCH ×2 (15:50→17:48)
[2022-02-16] MEDS ORDERED: Ampicillin/Sulbactam 3,000 MG in 0.9 % Sodium Chloride Mini Bag 100 ML IVPB ONE (18:00)
[2022-02-17 01:52] LABS: VBG HCO3 28 mEq/L (21-27); VBG PCO2 38 mmHg (41-51); VBG PH 7.47 pH Units (7.32-7.42); VBG PO2 129 mmHg (25-50)
[2022-02-17 01:54] LABS: BUN/Creatinine Ratio 15 (6-26); Blood Urea Nitrogen 4 mg/dL (6-20); Calcium 8.6 mg/dL (8.6-10.3); Carbon Dioxide 29 mEq/L (23-29); Chloride 108 mEq/L (98-107); Glucose 93 mg/dL (70-105); Magnesium 2.2 mg/dL (1.6-2.6); Osmolality,Calculated 291 (280-300); Potassium 3.9 mEq/L (3.5-5.1); Sodium 142 mEq/L (136-145); eGFR For African Americans > 60 (> 60); eGFR For Non-African Americans > 60 (> 60)
[2022-02-17] MEDS: Levalbuterol Neb 1.25 MG/3 ML IH SCH ×4 (04:40→13:36)
[2022-02-17] MEDS: Acetylcysteine 10% 2 ML INHSOL IH SCH ×4 (04:40→20:51)
[2022-02-17] MEDS: MethylPREDNISolone 40 MG/ML VIAL IVP SCH (05:45)
[2022-02-17] MEDS: Famotidine 20 MG/2 ML VIAL IVP SCH ×2 (05:47→17:37)
[2022-02-17] MEDS: lamoTRIgine 100 MG TABLET GTUBE SCH ×3 (08:46→20:23)
[2022-02-17] MEDS: Docusate Oral Soln 100 MG/10 ML UDC GTUBE SCH ×2 (08:46→20:21)
[2022-02-17] MEDS: Primidone 50 MG TABLET GTUBE SCH ×3 (08:46→20:22)
[2022-02-17] MEDS: Glycopyrrolate 1 MG TABLET GTUBE SCH ×3 (08:47→20:21)
[2022-02-17] MEDS: Bisacodyl 10 MG RECTAL SUPPOSITORY RC SCH ×2 (08:48→20:23)
[2022-02-17] MEDS: Levalbuterol Neb 1.25 MG/3 ML IH PRN ×2 (16:01→20:51)
[2022-02-18] MEDS: Levalbuterol Neb 1.25 MG/3 ML IH PRN ×2 (04:02→07:44)
[2022-02-18] MEDS: Acetylcysteine 10% 2 ML INHSOL IH SCH ×2 (04:02→07:44)
[2022-02-18 05:09] LABS: VBG HCO3 29 mEq/L (21-27); VBG PCO2 40 mmHg (41-51); VBG PH 7.47 pH Units (7.32-7.42); VBG PO2 96 mmHg (25-50)
[2022-02-18] MEDS: Famotidine 20 MG/2 ML VIAL IVP SCH (06:00)
[2022-02-18 06:28] VITALS: BP 143/106; TEMP 98.6; O2SAT 95
[2022-02-18 08:30] VITALS: PULSE 108
[2022-02-18] MEDS: Docusate Oral Soln 100 MG/10 ML UDC GTUBE SCH (08:38)
[2022-02-18] MEDS: lamoTRIgine 100 MG TABLET GTUBE SCH (08:39)
[2022-02-18] MEDS: Primidone 50 MG TABLET GTUBE SCH (08:39)
[2022-02-18] MEDS: Glycopyrrolate 1 MG TABLET GTUBE SCH (08:40)
[2022-02-18] MEDS ORDERED: predniSONE 20 MG TABLET GTUBE SCH (09:00)
[2022-02-18] MEDS: Bisacodyl 10 MG RECTAL SUPPOSITORY RC SCH (09:19)
== END 2022-02-18 09:20 | disposition home health service (06) | DRG 871 ==
LOC: 3NENU 11:42 → EMEROOARM 11:42 → 3NENU 16:36 → SUATTDRO 02-10 11:47 → 2NNU 02-14 16:09
PROVIDERS: ADMIT Nurse Practitioner; ATTEND Internal Medicine